=== PATIENT | male | born 1945 | race Caucasian/White ===

== ENCOUNTER 2017-05-06 13:43 | Inpatient (IN) | payer OTHER, MEDICAID ==
--- NOTE | 2017-05-06 13:48 | EDPHY ---
HPI/HX/ROS/PE/MDM Narrative: CHIEF COMPLAINT: Shortness of breath HISTORY OF PRESENT ILLNESS: This patient is a 71 y/o male Arriving via EMS from [facility] for evaluation of shortness of breath worsening since Friday, three days ago. Friday, he developed symptoms including frequent emesis possibly related to norovirus, which was prevalent at [facility] this weekend. Friday, he developed shortness of breath. Workup completed at [facility] included chest x-ray, laboratory studies, and a flu swab. Flu test negative. He has received two doses of Rocephin, but has continued to get steadily worse. Today, the facility summoned EMS. EMS reports the patient had an SpO2 of 78% with 5L oxygen by nasal cannula on their arrival. Patient was tachypneic at 44-48 breaths per minute. With a nonrebreather at 15L and DuoNeb treatment, the patient improved to 92% SpO2. He remained tachypneic and tachycardic in transport. The patient is somnolent and visibly tachypneic, and is able to give one word responses to my questioning. HPI primarily obtained from facility report by phone and EMS report at bedside. REVIEW OF SYSTEMS: ROS difficult to obtain due to patient presentation. PAST MEDICAL HISTORY: Medical: SD, Hypertension, Emphysema, Diabetes mellitus, peripheral neuropathy, Drug/alcohol addiction, Psychosis, Depression, Anxiety, Post-traumatic seizures , CVA, GERD, BPH, History of arias to R foot Surgical: Appendectomy, tonsillectomy, CABG w/stent, orthopedic, toes amputated on R foot SOCIAL HISTORY: Lives at [facility]. Single. Retired. VITAL SIGNS: Reviewed by me GENERAL: Somnolent, visibly tachypneic with accessory muscle use. Able to respond to questions with one word answers. HEENT: Atraumatic. Eyes: No icterus, no injection. Mouth: Dry mucous membranes. No erythema or lesions. Neck: supple with no adenopathy. LUNGS: Wet-sounding rhonchi and rales across anterior chest. Posterior unable to assess. CARDIAC: Tachycardic rate, regular rhythm, no rubs, murmurs or gallops. ABDOMEN: Left upper quadrant discomfort. Soft, nondistended, bowel sounds normal. BACK: No CVA tenderness. EXTREMITIES: No trauma. No edema. Range of motion is normal throughout. NEURO: Alert and oriented, grossly nonfocal. SKIN: Warm and dry, no rash. PSYCHIATRIC: Somnolent, no agitation. Portions of this note were transcribed by a medical equipment repair technician. I personally performed a history, physical exam, medical decision making, and confirmed accuracy of information the transcribed note. ED Course: 71 y/o male presets with shortness of breath, visibly tachypneic with accessory muscle use. He requires 15LPM with nonrebreather and DuoNeb treatment to maintain adequate oxygen saturation. Exam reveals wet-sounding rhonchi and rales across anterior chest. Plan for chest x-ray, respiratory therapy consult. Patient's [place] MOST reviewed. Limited intervention permitted, no intubation. IVF, antibiotics okay. Plan for labs including CBC, chemistries, Troponin, sepsis protocol. I spoke with staff at the patient's living facility prior to his arrival. 13:42 Met EMS at bedside. 13:46 Respiratory therapy at bedside. Patient placed on BiPAP. Saturations now in the low-mid 90 range. 13:48 Chest x-ray at bedside. 13:50 Reviewed portable x-ray. X-ray shows bilateral pneumonia, right greater than left. Antibiotics (zosyn) administered for healthcare associated pneumonia and possible aspiration. Troponin elevated. 14:31 Consulted with hospitalist service. Dr. Valdez accepts admission to ICU for pneumonia, sepsis, elevated troponin, respiratory failure. Severe Sepsis/Septic Shock Care NoteThe patient presents to the ED with pneumonia identified as an acute infection. The patient did have evidence of end -organ dysfunction and met criteria for severe sepsis. This condition was identified by myself at 1422. The patients vital signs are 141/89, 104, 42, 96 % BiPap, 37.4 axillary. The patient has a venous lactic acid performed within 3 hours of the identification of severe sepsis which was found to be 2.0 The patient has blood cultures drawn and received zosyn IV, per the severe sepsis treatment protocol. Critical care time spent by me, Dr. Ball, exclusively with this patient was 40 minutes, exclusive of PA time and exclusive of procedures. The organ system at risk was respiratory and I gave IVF, antibiotic, administered DuoNeb, initiated sepsis protocols, consulted with respiratory therapy, and admitted the patient to ICU to prevent worsening of the patients condition. MDM: Differential diagnosis for the patient's shortness of breath was considered including but not limited to pulmonary infectious processes, COPD exacerbation, pulmonary emboli, pulmonary edema, congestive heart failure, and cardiac causes. - Data Points Imaging Results: Imaging Impressions Chest X-Ray 05/06/17 13:54 Impression: Bilateral pneumonia, right greater than left. Imaging: I viewed and interpreted images myself Laboratory Results: Laboratory Results 05/06/17 13:40 05/06/17 05/06/17 05/06/17 14:09 13:40 13:40 PT 14.1 SEC SEC (12.0-15.0) INR 1.07 (0.83-1.16) APTT 32.5 SEC SEC (23.0-38.0) VBG Lactic Acid 2.0 mmol/L mmol/L (0.7-2.1) Sodium 138 mEq/L mEq/L (134-144) Potassium 3.4 mEq/L L mEq/L (3.5-5.2) Chloride 100 mEq/L mEq/L (97-110) Carbon Dioxide 25 mEq/l mEq/l (22-31) Anion Gap 13 mEq/L mEq/L (8-16) BUN 31 mg/dL H mg/dL (7-23) Creatinine 1.0 mg/dL mg/dL (0.7-1.3) Estimated GFR > 60 Glucose 172 mg/dL H mg/dL (70-100) Calcium 8.4 mg/dL L mg/dL (8.5-10.4) Total Bilirubin 0.7 mg/dL mg/dL (0.1-1.4) Troponin I 0.038 ng/mL H ng/mL (0.000-0.034) NT-Pro-B Natriuret Pep 458 pg/mL H pg/mL (0-125) Medications Given: Albuterol/Ipratropium (Duoneb) 3 ml IH Q4HRS PRN PRN Reason: Short of Breath/Dyspnea Stop: 11/02/17 15:13 Last Admin: 05/06/17 18:18 Dose: 3 ml Azithromycin 500 mg/ Dextrose 255 mls @ 255 mls/hr IV DAILY OTILIA PRN Reason: Protocol Stop: 06/05/17 15:29 Last Admin: 05/06/17 17:52 Dose: 255 mls Piperacillin/Tazobactam/Dextrose (Zosyn 3.375 Gm (Premix)) 50 mls @ 100 mls/hr IV Q8HRS OTILIA PRN Reason: Protocol Stop: 06/05/17 21:59 Last Admin: 05/06/17 21:58 Dose: 50 mls Discontinued Medications Acetaminophen (Tylenol Rectal) 650 mg AK EDNOW ONE Stop: 05/06/17 15:02 Last Admin: 05/06/17 15:14 Dose: Not Given Acetaminophen (Tylenol) 1,000 mg PO EDNOW ONE Stop: 05/06/17 15:14 Last Admin: 05/06/17 15:16 Dose: 1,000 mg Albuterol (Proventil Neb) 3 ml IH EDNOW ONE Stop: 05/06/17 13:51 Last Admin: 05/06/17 14:14 Dose: 3 ml Albuterol/Ipratropium (Duoneb) 3 ml IH EDNOW ONE Stop: 05/06/17 13:51 Last Admin: 05/06/17 14:14 Dose: 3 ml Piperacillin/Tazobactam/Dextrose (Zosyn (Premix)) 100 mls @ 200 mls/hr IV EDNOW ONE PRN Reason: Protocol Stop: 05/06/17 14:19 Last Admin: 05/06/17 14:42 Dose: 100 mls Sodium Chloride (Ns) 2,600 mls @ 433.3333 mls/hr 30 ml/kg infuse over 6 hr ( 2600 ml) IV EDNOW ONE PRN Reason: Protocol Stop: 05/06/17 20:21 Last Admin: 05/06/17 14:43 Dose: 2,600 mls Potassium Chloride (Klor-Con) 40 meq PO ONCE ONE PRN Reason: Protocol Stop: 05/06/17 21:16 Last Admin: 05/06/17 22:10 Dose: 40 meq General Initial Vital Signs: Initial Vital Signs Temperature (C) 37.4 C 05/06/17 13:43 Heart Rate 103 H 05/06/17 13:43 Respiratory Rate 41 H 05/06/17 13:43 Blood Pressure 142/90 H 05/06/17 13:43 O2 Sat (%) 89 L 05/06/17 13:43 O2 Delivery Mode Bi-Pap Allergies/Adverse Reactions: codeine [Codeine] Allergy (Mild, Verified 01/13/14 02:06) finasteride [From Proscar] Allergy (Verified 05/06/17 13:49) Home Medications: Medication Instructions Recorded Acetaminophen [Tylenol] 650 mg PO Q6HRS PRN 07/06/13 Bisacodyl [Dulcolax Rectal (OTC)] 10 mg AK DAILY PRN 07/06/13 Calcium Carbonate [Tums 500MG (*)] 1,000 mg PO Q2 PRN 07/06/13 MAG HYDROX/AL HYDROX/SIMETH 2 tbs PO Q8HRS PRN 07/06/13 [Mylanta Liquid] Magnesium Hydroxide [Milk of 30 ml PO DAILY PRN 07/06/13 Magnesia (*)] Multivitamins [Multivitamin (*)] 1 each PO DAILY 07/06/13 Polyethylene Glycol 3350 [Miralax 17 gm PO DAILY PRN 07/06/13 17 gm (*)] Tamsulosin HCl [Flomax 0.4 MG (*)] 0.4 mg PO HS 07/06/13 Polyvinyl Alcohol [Artificial 1 drop EACHEYE DAILY PRN #0 01/13/14 Tears] Hydrocortisone 1% [Hydrocortisone 1 luz maria TP TID PRN 05/06/17 1% cream (*)] Ipratropium/Albuterol [Duoneb (*)] 3 ml IH Q4HRS PRN 05/06/17 LORazepam [Ativan (*)] 0.5 mg PO Q4HRS PRN 05/06/17 Loperamide HCl [Imodium 2 mg (*)] 2 mg PO Q3HRS PRN 05/06/17 Mineral Oil/Petrolatum,White 1 luz maria TP BID 05/06/17 [Eucerin Cream (*)] Ondansetron HCl [Zofran] 4 mg PO Q8HRS PRN 05/06/17 Venlafaxine Xr [Effexor Xr 75MG 225 mg PO DAILY 05/06/17 (*)] Departure - Departure Disposition: [facility] Clinical Impression: Elevated troponin Pneumonia Qualifiers: Pneumonia type: due to unspecified organism Laterality: bilateral Lung location : lower lobe of lung Qualified Code(s): J18.9 - Pneumonia, unspecified organism Respiratory failure Qualifiers: Chronicity: acute Respiratory failure complication: hypoxia Qualified Code(s): J96.01 - Acute respiratory failure with hypoxia Sepsis Qualifiers: Sepsis type: sepsis due to unspecified organism Qualified Code(s): A41.9 - Sepsis, unspecified organism Condition: Serious Report Scribed for: Tatiana Ball Report Scribed by: Sol Grullon Date of Report: 05/06/17 Time of Report: 15:02
[2017-05-06] MEDS ORDERED: PIPERACILLIN/TAZO 4.5 GM/DEX 100 ML IV ONE (13:50)
[2017-05-06] MEDS ORDERED: ALBUTEROL 3 ML DEYVIAL IH ONE (13:50)
[2017-05-06] MEDS ORDERED: IPRATROPIUM/ALBUTEROL 3 ML DEYVIAL IH ONE (13:50)
--- NOTE | 2017-05-06 13:59 | CPEKG ---
Heart Rate: 100 RR Interval: 600 P-R Interval: 176 QRSD Interval: 78 QT Interval: 320 QTC Interval: 413 P [place]: 42 QRS [place]: -29 T Wave [place]: 42 EKG Severity - BORDERLINE ECG - EKG Impression: SINUS TACHYCARDIA EKG Impression: ATRIAL PREMATURE COMPLEX EKG Impression: BORDERLINE LEFT AXIS DEVIATION Electronically Signed By: Wallace Beltran 08-May-2017 05:32:52
[2017-05-06 14:05] LABS: INR 1.07 (0.83-1.16); PROTIME(PATIENT) 14.1 SEC (12.0-15.0)
[2017-05-06 14:06] LABS: APTT 32.5 SEC (23.0-38.0)
[2017-05-06 14:11] LABS: ANION GAP 13 mEq/L (8-16); BILIRUBIN,TOTAL 0.7 mg/dL (0.1-1.4); CALCIUM 8.4 mg/dL (8.5-10.4); CARBON DIOXIDE 25 mEq/l (22-31); CHLORIDE 100 mEq/L (97-110); GLOMERULAR FILTRATION RATE > 60; GLUCOSE 172 mg/dL (70-100); POTASSIUM 3.4 mEq/L (3.5-5.2); SODIUM 138 mEq/L (134-144)
[2017-05-06] MEDS ORDERED: NS 2,600 ML IV ONE (14:22)
[2017-05-06 14:24] LABS: TROPONIN I 0.038 ng/mL (0.000-0.034)
[2017-05-06 14:41] LABS: % IMMATURE GRANULYOCYTES 0.5 % (0.0-1.1); ABSOLUTE IMMATURE GRANULOCYTES 0.05 10^3/uL (0.00-0.10); ADD DIFF? NO; ADD MORPH? NO; ADD SCAN? YES; ATYPICAL LYMPHOCYTE FLAG 20 (0-99); FRAGMENT RBC FLAG 0 (0-99); HEMATOCRIT 32.6 % (40.0-51.0); LIPEMIA HEMOLYSIS FLAG 80 (0-99); MEAN CELL HEMOGLOBIN 26.3 pg (27.9-34.1); MEAN CELL HEMOGLOBIN CONCENTR. 33.7 g/dL (32.4-36.7); MEAN PLATELET VOLUME 10.6 fL (8.7-11.7); PLATELET CLUMPS FLAG 10 (0-99); PLATELET COUNT 174 10^3/uL (150-400); RED BLOOD CELL COUNT 4.18 10^6/uL (4.40-6.38); RED CELL DISTRIBUTION WIDTH 14.1 % (11.5-15.2)
[2017-05-06 14:42] LABS: LEFT SHIFT FLG 150 (0-99)
[2017-05-06 15:01] LABS: SCAN POSITIVE
[2017-05-06] MEDS ORDERED: ACETAMINOPHEN 650 MG SUPP PR ONE (15:01)
[2017-05-06] MEDS ORDERED: ONDANSETRON 4 MG/2 ML VIAL IVP PRN (15:10)
[2017-05-06] MEDS ORDERED: ONDANSETRON DISINTEGRATING 4 MG TAB PO PRN (15:10)
[2017-05-06] MEDS ORDERED: ACETAMINOPHEN 500 MG TAB ONE (15:11)
[2017-05-06] MEDS ORDERED: ACETAMINOPHEN 500 MG TAB PO ONE (15:13)
[2017-05-06] MEDS ORDERED: BISACODYL 10 MG SUPP PR PRN (15:14)
[2017-05-06] MEDS ORDERED: NON-FORMULARY NEW DRUG (Polyvinyl Alcohol [Artificial Tears] 1 DROP) EACHEYE PRN (15:14)
[2017-05-06 15:23] LABS: MICROCYTES 1+; PLATELET ESTIMATE ADEQUATE (ADEQ)
[2017-05-06 15:24] LABS: TOXIC GRANULATION PRESENT
[2017-05-06] MEDS ORDERED: PROTOCOL POTASSIUM 1 DOSE MISC PRN ×2 (15:24→21:14)
[2017-05-06 15:25] LABS: BASE EXCESS -1.6 mEq/L (-2.5-2.5); BICARBONATE 21 mEq/L (22-26); MEASURED OXYGEN SATURATION 90 % (92-95); PCO2 30 mmHg (34-38); PO2 55 mmHg (65-75); TCO2 22 mEq/L (23-27)
--- NOTE | 2017-05-06 16:11 | GHP ---
[f rep st] HISTORY AND PHYSICAL DATE OF ADMISSION: 05/06/2017 HISTORY OF PRESENT ILLNESS: The patient is a pleasant, 71-year-old gentleman with history of hyperte nsion and diabetes who lives at [facility] and presents with a couple days of increasing work of b reathing. It sounds like there is norovirus outbreak going around there and he had nausea and vomiti ng with diarrhea over the weekend. He has been progressively short of breath. He received ceftriaxo ne x2 days; that is, the prior days. He was influenza negative on the . He presents here and on presentation he was, it sounds like, poorly responsive and low oxygen saturat ion on a nonrebreather with tachypnea. When I see the patient, per report, far more alert than when he arrived. He is wearing bilevel with increased work of breathing and a rapid respiratory rate. He is able to state that his breathing is probably better than he since arrived. He acknowledges nause a, vomiting, and diarrhea in the antecedent days. He does not recall having C diff, which the medical records suggest he did a number of years ago. He denies chest pain. He does not have swelling in his legs. It sounds like he has been living at [facility] for a while. He has a history of admissions here in the past for encephalopathy. SOCIAL HISTORY: He is a lifelong nonsmoker, although he smoked crack cocaine for a couple of years. CODE STATUS: Patient reconfirms a [id number] status and [id number] status. ER COURSE: Notable for IV fluids, Zosyn, bilevel. REVIEW OF SYSTEMS: Complete 10-point review of systems conducted. Negative except as noted in HPI. PAST MEDICAL HISTORY: 1. 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 2. History of diabetes, although he is not on any medications. 3. Hypertension. Not on medications. 4. Chronic kidney disease. Looks like in our system his creatinine is 1 today. Baseline is normal. Lower than that. So, I would cancel chronic kidney disease. 5. Anxiety disorder. 6. Reflux. 7. BPH. On medication. 8. Type 2 diabetes. 9. 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 10. Chronic ischemic heart disease. Not clear that he has had stents in the past. Not on aspirin o r statin. ALLERGIES: Codeine, finasteride. MEDICATIONS: Ondansetron, venlafaxine, MiraLAX, multivitamin, Milk of Magnesia, lorazepam, loperamid e, hydrocortisone, tamsulosin, ipratropium, calcium carbonate, Artificial Tears, bisacodyl, and Tylen ol. SOCIAL HISTORY: Previous crack cocaine. Lives in [facility]. Does not drink alcohol or smoke ci garettes. FAMILY HISTORY: Parents . PHYSICAL EXAMINATION: VITAL SIGNS: Temp 37.4, blood pressure 142/90, pulse 103, breathing 41 times a minute, 89% on CPAP. These are presenting vitals. GENERAL: He is in obvious respiratory distress . His sclerae are anicteric. Oropharynx clear. Mucous membranes are dry. NECK: Supple without ly mphadenopathy or JVD. LUNGS: Increased work of breathing with accessary muscle use. He has crackle s. Right greater than left. There is good air movement. There is minimal wheeze. HEART: S1, S2 w ithout murmurs. Tachycardic. ABDOMEN: Paradoxic motion but is otherwise unremarkable. LOWER EXTRE MITIES: Without edema. On the right, there is a transmetatarsal amputation on 06-29 without evidence of cellulitis. NEUROLOGIC: Nonfocal. The patient is alert and able to answer questions. SKIN: Ot herwise without rash. There is a skin graft site on the right side that is well healed. LABORATORY: Sodium 138, potassium 3.4, chloride 100, bicarb 25, BUN 31, creatinine 1.0. These are g reater than his baseline. Glucose 172. Calcium 8.4. Troponin 0.038. He has no history of elevated troponins, although there were indeterminate troponins here in the past. BNP is 458. White count 9 .6. Hematocrit is 33. Platelets are 174,000. MCV is low at 78. INR is 1. Venous lactate is 2. DIAGNOSTIC DATA: Chest x-ray, interpreted by me, shows bilateral pulmonary infiltrates. Although th e right is fairly significant, the left is also present. There is no pleural effusion. There is no pneumothorax. EKG interpreted by me. This shows sinus at 100. There is a borderline left axis deviation. There a re 0.[address] depressions or 1 mm in V3, V4, and V5. I discussed the case with Tatiana Ball. ASSESSMENT/PLAN: 71-year-old gentleman presents with sepsis and acute hypoxemic respiratory failure. 1. Sepsis. The source is his lungs. He is receiving intravenous fluids. We will follow his lactat e. 2. Pneumonia. The patient has nosocomial pneumonia. Zosyn and azithromycin. This may be aspiratio n. We can have a speech consult in the coming days. I have not ordered it now. 3. Acute hypoxemic respiratory failure. This is secondary to significant airspace disease seen on x -ray. I anticipate that this will get worse with volume resuscitation. 4. Increased work of breathing. We will check an ABG now. 5. Diabetes. The patient is not on any medications. We will follow. 6. Hypokalemia. We will put him on the electrolyte protocol. 7. Code status. The patient confirms [id number]. Still, we will have to manage his current status without intubation. I suspect we will be able to, although sometimes in this setting, a shamika ent's respiratory status worsens with hydration. 8. Prophylaxis. Pharmacologic prophylaxis indicated. We will start low-molecular weight heparin. 9. Anxiety and depression. I will continue his venlafaxine. 10. Indeterminate troponin. We will follow. PLAN OF CARE: The patient has a number of medical comorbidities for which he is currently not on med ications. I suspect there may be more of a palliative care setting for him, so we will go ahead and get more information when the patient is clinically more stable. 48 minutes of critical care time spent on this patient. /[id number]/MODL
[2017-05-06] MEDS ORDERED: TEARS/DEXTRAN 70/HYPROMELLOSE 15 ML OPHT.BTL EACHEYE PRN (17:22)
[2017-05-06] MEDS: AZITHROMYCIN IV 500 MG in D5W 250 ML IV SCH (17:52)
[2017-05-06] MEDS: IPRATROPIUM/ALBUTEROL 3 ML DEYVIAL IH PRN (18:18)
[2017-05-06 18:54] LABS: POTASSIUM 3.2 mEq/L (3.5-5.2)
[2017-05-06] MEDS ORDERED: POTASSIUM CL 20 MEQ TAB PO ONE (21:15)
[2017-05-06] MEDS: PIPERACILLIN/TAZO 3.375 GM/DEX 50 ML IV SCH (21:58)
[2017-05-06] MEDS: GUAIFENESIN/DM 10 ML UDCUP PO PRN (22:52)
[2017-05-07] MEDS: ACETAMINOPHEN 325 MG TAB PO PRN (00:10)
[2017-05-07 00:38] LABS: COLOR YELLOW; LEUKOCYTE ESTERASE,URINE NEGATIVE (NEGATIVE); NITRITE,URINE NEGATIVE (NEGATIVE)
[2017-05-07 00:47] LABS: AMORPHOUS PRESENT /hpf (NONE-1+); BACTERIA TRACE /hpf (NONE SEEN); MUCUS TRACE /lpf (NONE-1+)
[2017-05-07 04:41] LABS: % IMMATURE GRANULYOCYTES 0.5 % (0.0-1.1); ABSOLUTE IMMATURE GRANULOCYTES 0.04 10^3/uL (0.00-0.10); ADD DIFF? NO; ADD MORPH? NO; ADD SCAN? NO; ATYPICAL LYMPHOCYTE FLAG 0 (0-99); FRAGMENT RBC FLAG 0 (0-99); HEMATOCRIT 30.7 % (40.0-51.0); LEFT SHIFT FLG 70 (0-99); LIPEMIA HEMOLYSIS FLAG 80 (0-99); MEAN CELL HEMOGLOBIN 26.2 pg (27.9-34.1); MEAN CELL HEMOGLOBIN CONCENTR. 32.6 g/dL (32.4-36.7); MEAN CELL VOLUME 80.4 fL (81.5-99.8); MEAN PLATELET VOLUME 10.9 fL (8.7-11.7); PLATELET CLUMPS FLAG 10 (0-99); PLATELET COUNT 166 10^3/uL (150-400); RED BLOOD CELL COUNT 3.82 10^6/uL (4.40-6.38); RED CELL DISTRIBUTION WIDTH 14.2 % (11.5-15.2)
[2017-05-07] MEDS: CALCIUM CARBONATE 500 MG CHEWABLE TAB PO PRN ×2 (04:43→08:53)
[2017-05-07] MEDS: IPRATROPIUM/ALBUTEROL 3 ML DEYVIAL IH PRN (04:51)
[2017-05-07 04:54] LABS: ANION GAP 9 mEq/L (8-16); CALCIUM 7.3 mg/dL (8.5-10.4); CARBON DIOXIDE 25 mEq/l (22-31); CHLORIDE 106 mEq/L (97-110); CREATININE 0.8 mg/dL (0.7-1.3); GLOMERULAR FILTRATION RATE > 60; GLUCOSE 111 mg/dL (70-100); POTASSIUM 3.2 mEq/L (3.5-5.2); SODIUM 140 mEq/L (134-144)
[2017-05-07] MEDS ORDERED: POTASSIUM CL 20 MEQ TAB PO ONE (05:19)
[2017-05-07] MEDS: GUAIFENESIN/DM 10 ML UDCUP PO PRN ×2 (05:24→18:29)
[2017-05-07] MEDS: PIPERACILLIN/TAZO 3.375 GM/DEX 50 ML IV SCH (05:24)
[2017-05-07] MEDS: VENLAFAXINE XR 75 MG CAP PO SCH (08:08)
[2017-05-07] MEDS: ENOXAPARIN 40 MG/0.4 ML SYR SC SCH (08:08)
[2017-05-07] MEDS: AZITHROMYCIN IV 500 MG in D5W 250 ML IV SCH (08:20)
--- NOTE | 2017-05-07 08:37 | CPEKG ---
Heart Rate: 89 RR Interval: 674 P-R Interval: 176 QRSD Interval: 88 QT Interval: 356 QTC Interval: 434 P [place]: 57 QRS [place]: -22 T Wave [place]: 40 EKG Severity - ABNORMAL ECG - EKG Impression: SINUS RHYTHM EKG Impression: ATRIAL PREMATURE COMPLEX EKG Impression: BORDERLINE LEFT AXIS DEVIATION EKG Impression: PROBABLE POSTERIOR INFARCT Electronically Signed By: Yolanda Araujo 07-May-2017 11:13:20
--- NOTE | 2017-05-07 10:39 | PDMN ---
Medical Necessity Medical necessity: Pt meets IP criteria per MD; est los >2 mn for eval/tx of sepsis, pneumonia, acute hypoxemic respiratory failure & hypokalemia; admit to ICU for further workup/monitoring, IV abx, ABGs, cxs & electrolyte protocol; hx CDIFF, encephalopathy, diabetes, HTN, CKD, chronic ischemic heart disease; per H &P & order 05/06/17
[2017-05-07] MEDS ORDERED: POLYETHYLENE GLYCOL 3350 17 GM PKT PO PRN (10:44)
[2017-05-07] MEDS ORDERED: MAGNESIUM HYDROXIDE 30 ML UDCUP PO PRN (10:44)
[2017-05-07] MEDS: IPRATROPIUM/ALBUTEROL 3 ML DEYVIAL IH SCH ×4 (11:52→23:12)
--- NOTE | 2017-05-07 12:55 | ASMTCASEMG ---
Living Arrangements What is your living Answers: WIth Caregiver arrangement? Who do you live with? Type Of Residence What kind of residence do Answers: Alf Facility you live in? Type of Residence Facility Name Notes: [facility] Discharge Plan Comments Coordination Status Comments Notes: Patient is a 71yo gentleman with a hx of hypertension and diabetes who was admitted for sepsis, pneumonia, and acute hypoxic respiratory failure. Patient is a resident of [facility] and currently they have norovirus at the facility. PT/OT have been ordered. Patient will most likely return to [facility] after his medical treatment is complete. Awaiting OT/PT recommendations. CM will follow. Date Signed: 05/07/2017 12:54 PM Electronically Signed By:Tammy Kamara LCSW
[2017-05-07] MEDS ORDERED: IPRATROPIUM/ALBUTEROL 3 ML DEYVIAL IH ONE (16:30)
[2017-05-07] MEDS ORDERED: ALBUTEROL 200 PUFFS/18 GM MDI IH PRN (16:44)
--- NOTE | 2017-05-07 16:49 | HOSPPROG ---
Hospitalist Progress Note Assessment/Plan: # Sepsis 2/2 pulmonary source - pt presented with tachycrdia, fever and elevated lactate - he received aggressive fluid resuscitation and empiric antibiotics - BCx NGTD - hemodynamics have markedly improved - cont antibiotics and supportive care # CAP - CXR (personally reviwed and interpreted) with bilateral infiltrates - oxygen saturations requiring BiPap to 90% on 4L today - transition to PO levofloxacin - cont inhaled beta agonists - cont pulmonary toilet # AHRF - 2/2 above - contine aggressive pulmonary suppport - patient has improved very quickly since admission # Acute leukocytosis - WBC 9 ->8 this am continue to monitor cultures # Anxiety/depression - continue home effexor # proph - lovenox #diet - regular # dispo - > 2MN as presenting septic needing additional stabilization before returning home I have discussed the case with Dr. Herring - patient is stable for transfer to medical floor Subjective: feeling better today Objective: Vital Signs Temp Pulse Resp BP Pulse Ox 36.8 C 88 19 133/77 H 88 L 05/07/17 15:08 05/07/17 16:13 05/07/17 15:08 05/07/17 15:08 05/07/17 16:13 Microbiology 05/06/17 14:46 Respiratory Panel (PCR) - Final Nasal, Sinus - Swab Human Rhinovirus/Enterovirus Laboratory Results 05/07/17 04:25 05/07/17 04:25 05/06/17 05/07/17 05/08/17 05:59 05:59 05:59 Intake Total 1702 750 Output Total 250 75 Balance 1452 675 PT 14.1 SEC (12.0-15.0) 05/06/17 13:40 INR 1.07 (0.83-1.16) 05/06/17 13:40 - Physical Exam Constitutional: appears nourished Respiratory: expiratory wheeze, rhonchi Gastrointestinal: normoactive bowel sounds Genitourinary: no bladder fullness Skin: warm Musculoskeletal: No asymmetric calves Neurologic: AAOx3 Psychiatric: interacting appropriately Lymph, Heme, Immunologic: no cervical LAD ICD10 Worksheet Patient Problems: Problems Problem Status Onset Elevated troponin Acute Pneumonia Acute Respiratory failure Acute Sepsis Acute Clostridium difficile infection Acute Benign hypertension Chronic Bipolar disorder Chronic CAD - Coronary arteriosclerosis Chronic Diabetes mellitus Chronic Seizure disorder Chronic
[2017-05-07] MEDS: LORazepam 0.5 MG TAB PO PRN (18:29)
[2017-05-07 19:07] LABS: POTASSIUM 3.3 mEq/L (3.5-5.2)
[2017-05-07] MEDS ORDERED: LORazepam 0.5 MG TAB PO ONE (20:38)
[2017-05-07] MEDS: TAMSULOSIN HCL 0.4 MG CAP PO SCH (20:55)
[2017-05-07] MEDS ORDERED: POTASSIUM CL 10 MEQ TAB PO ONE (20:57)
[2017-05-07] MEDS: EUCERIN/HYDROCERIN CREAM 120GM JAR TP SCH (22:29)
[2017-05-08] MEDS: IPRATROPIUM/ALBUTEROL 3 ML DEYVIAL IH SCH ×6 (03:03→23:42)
[2017-05-08] MEDS: LORazepam 0.5 MG TAB PO PRN ×4 (03:48→21:28)
[2017-05-08] MEDS ORDERED: FUROSEMIDE 20 MG/2 ML VIAL IVP ONE (04:44)
[2017-05-08 05:43] LABS: POTASSIUM 3.8 mEq/L (3.5-5.2)
[2017-05-08] MEDS: VENLAFAXINE XR 75 MG CAP PO SCH (08:35)
[2017-05-08] MEDS: ENOXAPARIN 40 MG/0.4 ML SYR SC SCH (08:35)
[2017-05-08] MEDS: MULTIVITAMINS 1 EACH TAB PO SCH (08:36)
[2017-05-08 09:21] LABS: PHENCYCLIDINE URINE BCH 9 ng/ml (NEGATIVE); PHENCYCLIDINE URINE BCH NEGATIVE (NEGATIVE); TETRAHYDROCANNABINOL URINE < 5 ng/mL (NEGATIVE); TETRAHYDROCANNABINOL URINE NEGATIVE (NEGATIVE)
--- NOTE | 2017-05-08 11:34 | ASMTCMCOM ---
CM Note CM Note Notes: Pt admitted from [facility]. Faxed them updates today. Pt requesting his glass, ipda and Astronomy book from . However, due to their norovirus outbreak, it is unlikey anyone can do that for him today per Viola. C/M will continue to follow. Date Signed: 05/08/2017 11:34 AM Electronically Signed By:Shawnee Gil LCSW
--- NOTE | 2017-05-08 13:40 | HOSPPROG ---
Hospitalist Progress Note Assessment/Plan: # Sepsis 2/2 pulmonary source - pt presented with tachycardia, fever and elevated lactate - he received aggressive fluid resuscitation and empiric antibiotics - BCx NGTD - hemodynamics have markedly improved - cont antibiotics and supportive care # CAP - CXR (personally reviewed and interpreted) with bilateral Right> left infiltrates - oxygen saturations 92% on 6L today - cont PO levofloxacin - cont inhaled beta agonists - cont pulmonary toilet # AHRF - 2/2 above - continue aggressive pulmonary support - seems stable since transfer to floor # Acute leukocytosis - WBC 9 -> 8 - continue to monitor cultures # Anxiety/depression - continue home Effexor # proph - lovenox #diet - regular # dispo - > 2MN as presenting septic needing additional stabilization before returning home I have discussed the case with Dr. Herring - infiltrates may be combination of viral pathogens and overlying bacterial PNA Subjective: breathing still feels labored Objective: Vital Signs Temp Pulse Resp BP Pulse Ox 37.0 C 93 26 H 143/80 H 95 05/08/17 12:00 05/08/17 12:00 05/08/17 12:00 05/08/17 12:00 05/08/17 12:00 Laboratory Results 05/07/17 04:25 05/08/17 05:20 05/07/17 05/08/17 05/09/17 05:59 05:59 05:59 Intake Total 1702 1290 Output Total 250 250 100 Balance 1452 1040 -100 PT 14.1 SEC (12.0-15.0) 05/06/17 13:40 INR 1.07 (0.83-1.16) 05/06/17 13:40 - Physical Exam Constitutional: chronically ill appearing, obese Eyes: anicteric sclera Ears, Nose, Mouth, Throat: moist mucous membranes Cardiovascular: regular rate and rhythym Respiratory: expiratory wheeze, inspiratory crackles Gastrointestinal: normoactive bowel sounds Genitourinary: no bladder fullness Skin: warm Musculoskeletal: No asymmetric calves Neurologic: AAOx3 Psychiatric: No agitated Lymph, Heme, Immunologic: no cervical LAD ICD10 Worksheet Patient Problems: Problems Problem Status Onset Elevated troponin Acute Pneumonia Acute Respiratory failure Acute Sepsis Acute Clostridium difficile infection Acute Benign hypertension Chronic Bipolar disorder Chronic CAD - Coronary arteriosclerosis Chronic Diabetes mellitus Chronic Seizure disorder Chronic
[2017-05-08] MEDS: EUCERIN/HYDROCERIN CREAM 120GM JAR TP SCH ×2 (15:10→20:16)
[2017-05-08 18:58] LABS: POTASSIUM 3.4 mEq/L (3.5-5.2)
[2017-05-08] MEDS: TAMSULOSIN HCL 0.4 MG CAP PO SCH (20:15)
[2017-05-08] MEDS: LORazepam 2 MG/ML INJ IVP PRN (20:15)
[2017-05-08] MEDS ORDERED: POTASSIUM CL 10 MEQ TAB PO ONE (20:18)
[2017-05-09] MEDS: GUAIFENESIN/DM 10 ML UDCUP PO PRN (01:42)
[2017-05-09] MEDS: LORazepam 2 MG/ML INJ IVP PRN ×2 (01:42→17:10)
[2017-05-09] MEDS: IPRATROPIUM/ALBUTEROL 3 ML DEYVIAL IH SCH ×6 (04:39→23:14)
[2017-05-09 05:28] LABS: HEMATOCRIT 32.3 % (40.0-51.0); HEMOGLOBIN 10.5 g/dL (13.7-17.5); MEAN CELL HEMOGLOBIN 25.5 pg (27.9-34.1); MEAN CELL HEMOGLOBIN CONCENTR. 32.5 g/dL (32.4-36.7); MEAN CELL VOLUME 78.4 fL (81.5-99.8); RED BLOOD CELL COUNT 4.12 10^6/uL (4.40-6.38); RED CELL DISTRIBUTION WIDTH 14.4 % (11.5-15.2)
[2017-05-09 05:40] LABS: POTASSIUM 3.5 mEq/L (3.5-5.2)
[2017-05-09] MEDS: ENOXAPARIN 40 MG/0.4 ML SYR SC SCH (09:45)
[2017-05-09] MEDS: MULTIVITAMINS 1 EACH TAB PO SCH (09:56)
[2017-05-09] MEDS: VENLAFAXINE XR 75 MG CAP PO SCH (09:56)
[2017-05-09] MEDS ORDERED: FUROSEMIDE 40 MG/4 ML VIAL IVP ONE ×2 (11:11→18:26)
[2017-05-09] MEDS ORDERED: IOPAMIDOL (ISOVUE 370) 100 ML BTL IV ONE (12:09)
[2017-05-09] MEDS: EUCERIN/HYDROCERIN CREAM 120GM JAR TP SCH ×2 (12:17→20:30)
[2017-05-09] MEDS: methylPREDNISolone SOD SUCC 125 MG/2 ML VIAL IVP SCH ×3 (12:44→20:27)
[2017-05-09 14:24] LABS: BASE EXCESS 0.7 mEq/L (-2.5-2.5); BICARBONATE 24 mEq/L (22-26); MEASURED OXYGEN SATURATION 94 % (92-95); PCO2 35 mmHg (34-38); PO2 70 mmHg (65-75); TCO2 25 mEq/L (23-27)
[2017-05-09] MEDS ORDERED: VANCOMYCIN HCL/NORMAL SALINE 250 ML IV SCH (18:30)
[2017-05-09] MEDS: PIPERACILLIN/TAZO 3.375 GM/DEX 50 ML IV SCH ×2 (18:33→23:30)
[2017-05-09 18:53] LABS: % IMMATURE GRANULYOCYTES 2.4 % (0.0-1.1); ABSOLUTE IMMATURE GRANULOCYTES 0.25 10^3/uL (0.00-0.10); ADD DIFF? NO; ADD MORPH? NO; ADD SCAN? NO; ATYPICAL LYMPHOCYTE FLAG 90 (0-99); FRAGMENT RBC FLAG 0 (0-99); HEMATOCRIT 35.1 % (40.0-51.0); HEMOGLOBIN 11.5 g/dL (13.7-17.5); LEFT SHIFT FLG 20 (0-99); LIPEMIA HEMOLYSIS FLAG 80 (0-99); MEAN CELL HEMOGLOBIN CONCENTR. 32.8 g/dL (32.4-36.7); MEAN CELL VOLUME 79.4 fL (81.5-99.8); PLATELET CLUMPS FLAG 0 (0-99); PLATELET COUNT 260 10^3/uL (150-400); RED BLOOD CELL COUNT 4.42 10^6/uL (4.40-6.38); RED CELL DISTRIBUTION WIDTH 14.5 % (11.5-15.2)
--- NOTE | 2017-05-09 18:53 | HOSPPROG ---
Hospitalist Progress Note Assessment/Plan: Assessment: 71 yo M p/w sepsis and pneumonia c/b acute diastolic CHF exacerbation, reactive airway exacerbation and resultant respiratory failure Plan: # Acute diastolic CHF exacerbation. Worsening today, likely iatrogenic in setting of IVF w/ sepsis tx, evidenced by pulm edema/effusions on CT, escalating o2 requirements, tachypnea - reviewed outside records (Echo 08/03/13 w/ dd, EF 60-65%) - began diuresis this afternoon, will cont lasix IV 40mg bid - strict I/O, weights - get Echo - monitor lytes - resp status remains critical despite initial dose of lasix, d/w RT, place on CPAP trial, transfer to SDU # Acute reactive airway exacerbation. Worsening today, exp wheezes/bronchial breath sounds, likely 2/2 PNA precipitant - start IV steroids, cont scheduled nebs - ABG w/o CO2 retention # Sepsis. POA, Evidenced by autonomic dysregulation in setting of infxn w/ end- organ failure including myocardial ischemia - stabilized, WBC downtrending # CAP. POA, Resolving on chest CT, cont levofloxacin # Acute Hypoxic Resp Failure. POA, Evidenced by escalating o2 requirements today (6LPM 88%, RR 30, visibly labored breathing w/ use of accessory muscles), 2/2 above - transfer to SDU # Acute on chronic encephalopathy. Evidenced by global brain dysfunction characterized as poor level of interaction, responsiveness, disorientation, all of which are an acute change from his baseline, as witnessed by a staff member who worked w/ patient as recently as 2 weeks ago at [facility], 2/2 toxic effects of infxn # Anxiety/depression - continue home Effexor # proph - lovenox # diet - regular # code - DNR, but BiPAP w/in scope of care # dispo - ADD uncertain 45 minutes of critical care time spent today, assessing and reassessing patient on multiple occasions, remains high risk of worsening morbidity/mortality 2/2 issues outlined above. Subjective: patient struggling to breath, calling for "help" Objective: Vital Signs Temp Pulse Resp BP Pulse Ox 36.5 C 104 H 25 H 159/83 H 91 L 05/09/17 17:00 05/09/17 17:33 05/09/17 17:00 05/09/17 17:33 05/09/17 17:33 Laboratory Results 05/09/17 04:11 05/09/17 04:11 05/08/17 05/09/17 05/10/17 05:59 05:59 05:59 Intake Total 1290 1550 Output Total 250 100 Balance 1040 1450 PT 14.1 SEC (12.0-15.0) 05/06/17 13:40 INR 1.07 (0.83-1.16) 05/06/17 13:40 - Physical Exam Constitutional: chronically ill appearing, uncomfortable, unkempt Cardiovascular: tachycardia, edema (trace bilat LE), No systolic murmur, No irregularly irregular Respiratory: expiratory wheeze, inspiratory crackles, bronchial breath sounds, respiratory distress, other (use of accessory muscles) Gastrointestinal: normoactive bowel sounds, soft, non-tender abdomen, no palpable masses Neurologic: other (AAOx1 person only), No weakness (motor 5/5 bilat LE) Psychiatric: encephalopathic, anxious, agitated, poor insight, poor memory ICD10 Worksheet Patient Problems: Problems Problem Status Onset Benign hypertension Chronic Diabetes mellitus Chronic Seizure disorder Chronic CAD - Coronary arteriosclerosis Chronic Bipolar disorder Chronic Clostridium difficile infection Acute Pneumonia Acute Sepsis Acute Respiratory failure Acute Elevated troponin Acute
[2017-05-09 19:16] LABS: ALANINE AMINOTRANSFERASE 103 IU/L (21-72); ALBUMIN 3.1 g/dL (3.5-5.0); ALKALINE PHOSPHATASE 106 IU/L (38-126); ANION GAP 21 mEq/L (8-16); ASPARTATE AMINOTRANSFERASE 107 IU/L (17-59); BILIRUBIN,TOTAL 0.6 mg/dL (0.1-1.4); CALCIUM 8.2 mg/dL (8.5-10.4); CARBON DIOXIDE 22 mEq/l (22-31); CHLORIDE 101 mEq/L (97-110); CREATININE 0.9 mg/dL (0.7-1.3); GLOMERULAR FILTRATION RATE > 60; GLUCOSE 176 mg/dL (70-100); POTASSIUM 3.7 mEq/L (3.5-5.2); SODIUM 144 mEq/L (134-144); TOTAL PROTEIN 6.4 g/dL (6.3-8.2)
[2017-05-09] MEDS: VANCOMYCIN 1.25 GM in D5W 250 ML IV SCH (20:06)
[2017-05-09] MEDS ORDERED: DEXMEDETOMIDINE HCL 400 MCG in NS 100 ML IV SCH (20:30)
[2017-05-09] MEDS: TAMSULOSIN HCL 0.4 MG CAP PO SCH (20:30)
--- NOTE | 2017-05-09 20:42 | GCON ---
[f rep st] CONSULTATION DATE OF CONSULTATION: 05/09/2017 REASON FOR CONSULTATION: Pneumonia, acute respiratory failure. HISTORY OF PRESENT ILLNESS: The patient is a 71-year-old, resident of [facility]. He was admitted to the hospital on 05/06, secondary to increasing shortness of breath and hypoxemia. On admission he had pulmonary infiltrates on the right greater than the left. Respiratory viral panel was positive for enterovirus/rhino virus. Blood cultures are negative. A sputum culture has not been obtained. He was briefly in the intensive care unit and was then subsequently transferred to a medical bed. He is now transferred back secondary to increasing dyspnea, respiratory distress, and hypoxemia. He has no history of underlying pulmonary disease. He apparently is a never smoker. He has a number of underlying medical problems, as outlined below. He is not on oxygen in the care home and not on inhalers. 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 DRUG ALLERGIES: Codeine and finasteride. SOCIAL HISTORY: He is a resident of [facility]. Complete details regarding prior social history are unknown to me. He apparently did use crack cocaine in the past ? He is a never smoker. Alcohol is negative. FAMILY HISTORY: Noncontributory. REVIEW OF SYSTEMS: A 10-point review of systems is negative, except as mentioned above in the HPI. PHYSICAL EXAMINATION: GENERAL: Reveals a gentleman who has an oxy mask in place. He is short of breath with a respiratory rate of approximately 30. Saturations are 95%. Heart rate is 105 with sinus tachycardia on the monitor. Blood pressure is 155/100. He is afebrile and has been afebrile since admission. HEENT: Remarkable for dry mucous membranes in the oxy mask. NECK: There is no obvious jugular venous distention. PULMONARY: The chest is remarkable for tachypnea, decreased excursions, rales in the right greater than the left with some bronchial changes. Rales are fairly distant and less impressive than his radiologic studies. HEART: Tachycardic. Systolic murmur is present. There are no obvious gallops. P2 does appear to be increased. ABDOMEN: Slightly distended, soft, and nontender. Bowel sounds are present. EXTREMITIES: Are unremarkable for edema, cords or tenderness. NEUROLOGIC: Nonfocal. He moves all extremities equally. Sensation is intact. He is responsive to questions, but is having difficulty talking secondary to dry mouth. IMAGING STUDIES: CT angiogram of the chest just done is unremarkable for pulmonary embolic disease. There is an impressive alveolar infiltrate with air bronchograms throughout the right lung, in the left upper lobe, and somewhat at the left base. Small bilateral pleural effusions are also present. LABORATORY DATA: Arterial blood gas shows a pH of 7.45, pCO2 of 35, and pO2 70 on the oxy mask. White blood cell count is 10,000, hematocrit 32, platelets 219 ,000. PT and PTT were normal on admission. Basic metabolic panel 2 days ago was normal. Potassium is 3.5, today. Toxicology screen on admission was negative. ASSESSMENT: 1. Acute respiratory failure. This is associated with bilateral pulmonary infiltrates, right greater than left. This likely represents an aspiration pneumonia/pneumonitis. He may have vomited recently. Viral pneumonitis or congestive heart failure seems much less likely.. He was initially treated with Zosyn and azithromycin, but these were stopped, and he was switched to Levaquin with initial improvement. Broader coverage would appear to be needed at this time. A component of congestive heart failure cannot be excluded. However, BNP was relatively low at 458 on admission. This will be repeated. A cardiac echocardiogram will be requested. 2. History of depression and bipolar disease. 3. History of coronary artery disease, diastolic dysfunction. 4. History of MRSA infections 5. Positive viral panel for rhino/entero virus. Significance is unclear. Likely not responsible for his pulmonary infiltrates. 6. History of other medical problems as outlined above. 7. Advanced directives: Do not resuscitate PLAN AND RECOMMENDATIONS: The patient will be supported in the intensive care unit. BiPAP and ventilatory assistance will be initiated. Chemistries, troponins, BNP, and CBC will all be redone. Levaquin will be discontinued and antibiotics broadened: This will include Zosyn, azithromycin and vancomycin. Lasix will be repeated x1. Bronchopulmonary therapies will be continued. Steroids can be reduced. Further plans and recommendations will be made based on his progress over the next 12-24 hours. /[id number]/MODL and [id number]/MODL [facility]
[2017-05-09] MEDS: DEXMEDETOMIDINE IN 0.9 % NACL 100 ML IV SCH (20:52)
[2017-05-10] MEDS: DEXMEDETOMIDINE IN 0.9 % NACL 100 ML IV SCH ×2 (04:04→08:21)
[2017-05-10 04:42] LABS: ANION GAP 16 mEq/L (8-16); CALCIUM 7.8 mg/dL (8.5-10.4); CARBON DIOXIDE 25 mEq/l (22-31); CHLORIDE 102 mEq/L (97-110); CREATININE 1.1 mg/dL (0.7-1.3); GLOMERULAR FILTRATION RATE > 60; GLUCOSE 212 mg/dL (70-100); POTASSIUM 3.6 mEq/L (3.5-5.2); SODIUM 143 mEq/L (134-144)
[2017-05-10 04:44] LABS: % IMMATURE GRANULYOCYTES 1.8 % (0.0-1.1); ABSOLUTE IMMATURE GRANULOCYTES 0.12 10^3/uL (0.00-0.10); ADD DIFF? NO; ADD MORPH? NO; FRAGMENT RBC FLAG 0 (0-99); HEMATOCRIT 32.3 % (40.0-51.0); HEMOGLOBIN 10.7 g/dL (13.7-17.5); LEFT SHIFT FLG 20 (0-99); LIPEMIA HEMOLYSIS FLAG 80 (0-99); MEAN CELL HEMOGLOBIN 26.2 pg (27.9-34.1); MEAN CELL HEMOGLOBIN CONCENTR. 33.1 g/dL (32.4-36.7); MEAN CELL VOLUME 79.2 fL (81.5-99.8); MEAN PLATELET VOLUME 10.5 fL (8.7-11.7); PLATELET CLUMPS FLAG 0 (0-99); PLATELET COUNT 262 10^3/uL (150-400); RED BLOOD CELL COUNT 4.08 10^6/uL (4.40-6.38); RED CELL DISTRIBUTION WIDTH 14.5 % (11.5-15.2)
[2017-05-10] MEDS: IPRATROPIUM/ALBUTEROL 3 ML DEYVIAL IH SCH ×5 (04:45→21:07)
[2017-05-10 04:47] LABS: ADD SCAN? NO; ATYPICAL LYMPHOCYTE FLAG 10 (0-99)
[2017-05-10] MEDS: PIPERACILLIN/TAZO 3.375 GM/DEX 50 ML IV SCH ×4 (06:19→23:23)
[2017-05-10] MEDS: VANCOMYCIN 1.25 GM in D5W 250 ML IV SCH ×2 (06:21→18:44)
[2017-05-10] MEDS: methylPREDNISolone SOD SUCC 125 MG/2 ML VIAL IVP SCH ×2 (09:31→21:20)
[2017-05-10] MEDS: VENLAFAXINE XR 75 MG CAP PO SCH ×2 (09:31→09:58)
[2017-05-10] MEDS: AZITHROMYCIN IV 500 MG in D5W 250 ML IV SCH (09:31)
[2017-05-10] MEDS: ENOXAPARIN 40 MG/0.4 ML SYR SC SCH (09:31)
[2017-05-10] MEDS: MULTIVITAMINS 1 EACH TAB PO SCH ×2 (09:32→09:58)
[2017-05-10 11:30] LABS: BILIRUBIN,TOTAL 0.4 mg/dL (0.1-1.4); BILIRUBIN-CONJUGATED 0.3 mg/dL (0.0-0.5); BILIRUBIN-UNCONJUGATED 0.1 mg/dL (0.0-1.1); TOTAL PROTEIN 6.6 g/dL (6.3-8.2)
[2017-05-10] MEDS: POTASSIUM CL 20 MEQ TAB PO SCH (12:05)
[2017-05-10] MEDS: EUCERIN/HYDROCERIN CREAM 120GM JAR TP SCH ×2 (12:08→21:22)
[2017-05-10 12:27] LABS: PROCALCITONIN 2.43 ng/mL (0.02-0.10)
--- NOTE | 2017-05-10 12:55 | ECHO ---
[email or web address] [address] [address] Main: [phone] Fax: Transthoracic Echocardiogram Name: GINA HOOPER MR#: [id number] Study Date: 05/10/2017 Study Time: 11:29 AM Date of : 1945 Age: 71 year(s) Height: 182.9 cm (72 in.) Weight: 86.18 kg (190 lb.) BSA: 2.08 m2 Gender: Male Examination: Echo Indication: PNA, Sepsis, DNR, Respiratory failure, increased troponins, BiPap Image Quality: Technically Difficult Contrast: Requested by: Morgan Mohan BP: 157 mmHg/87 mmHg Heart Rate: Rhythm: Indication: PNA, Sepsis, DNR, Respiratory failure, increased troponins, BiPap Procedure Staff Conference Planner: Eugenio Bañuelos Reading Physician: Jason Cabrera Requesting Provider: Conclusions: 1)Technically limited echo. 2)Low normal LVEF of 48%. Unable to assess specific wall motions. 3)Mild concentric LVH with mild diastolic dysfunction noted. 4)Aortic valve sclerosis without or AI. 5)Mild TR with estimated normal PA pressures. Measurements: Chambers Valvular Assessment AV/MV Valvular Assessment TV/PV Normal Normal Normal Name Value Range Name Value Range Name Value Range Ao Nohelia (MM): 3.6 cm (2.2 cm-3.7 AV Vmax: 1.12 m/s (1 m/s-1.7 TR Vmax: 2.31 mm/s ( - ) cm) m/s) TR PGmax: 21 mmHg ( - ) IVSd (2D): 0.9 cm (0.6 cm-1.1 AV maxP mmHg ( - ) syst. PAP: 26 mmHg ( - ) cm) MV E Vmax: 0.48 m/s ( - ) LVDd (2D): 4.9 cm (4.2 cm-5.9 MV A Vmax: 0.82 m/s ( - ) cm) MV E/A: 0.59 ( - ) LVDs (2D): 3.7 cm (2.1 cm-4 cm) LVPWd (2D): 1.2 cm (0.6 cm-1 cm) LVEF (2D): 48 (>=54 %) Continued Measurements: Valvular Assessment AV/MV Valvular Assessment TV/PV Name Value Name Value MV E' Septal: 0.06 m/s CVP (est.): 5 mmHg MV E/E' Septal: 7.90 MV E/E' Lateral: 10.70 Patient: GINA HOOPER Study Date: 05/10/2017 Page 1 of 2 11:29 AM Findings: Left Ventricle: Normal size left ventricle. Mild concentric LV hypertrophy. Low normal left ventricular systolic function. EF is 48 %. No regional wall motion abnormality. Diastolic dysfunction is present. . Technically difficult exam due to patient combativeness and respiratory interference. There is no obvious wall motion noted with the limited views available. . Left Atrium: The left atrium is normal in size. Right Atrium: The right atrium is not well visualized. Mitral Valve: The mitral valve is normal in appearance. There is no mitral valve regurgitation. Aortic Valve: Mild aortic cusp calcification is noted. Tricuspid Valve: The tricuspid valve appears normal. The pulmonary artery pressure is normal. Mild tricuspid regurgitation is present. Pulmonic Valve: Pulmonary valve not visualized. Pericardium: No pericardial effusion. Exam Comments: Limited views available, no subcostal views available,. (No Signature Object) Patient: GINA HOOPER Study Date: 05/10/2017 Page 2 of 2 11:29 AM [id number]
--- NOTE | 2017-05-10 13:52 | PDINTPN ---
Core Java Engineer Progress Note Assessment/Plan: Assessment: Acute respiratory failure: Associated with bilateral pulmonary infiltrates, right greater than left. Possible aspiration pneumonia/pneumonitis verses a nosocomial acquired or viral pneumonia. History of MRSA in the past, so on vancomycin. Blood cultures negative to date. Entero/rhino virus PCR positive, but of unclear significance. Doubt congestive heart failure/diastolic dysfunction is causing pulmonary edema, but did get Lasix x2 yesterday. On BiPAP. No evidence of sepsis. Blood pressures are fine, lactates low. He is DNR per advanced directives. Abnormal mental status: On Precedex secondary to agitation and for compliance with BiPAP. He does have a significant underlying psychiatric disorder secondary to depression and bipolar, and underlying cognitive deficit secondary to substance abuse and previous trauma. Type 2 diabetes: Glucoses climbing to over 200. In part secondary to steroids. Will start p.r.n. coverage. Metabolic: On replacement protocols DVT prophylaxis: On enoxaparin GI prophylaxis: None. Will add Nutrition: None currently. On BiPAP. Possibly aspirated somewhat with sips yesterday. Will readdress in the a.m.. Plan: Continue present care in the ICU. Continue BiPAP support if needed. Will try a OxyMask and observe how he does. Will continue current antibiotic regimen. Consider narrowing tomorrow based on culture results. Hold on further diuresis for now. Add insulin sliding scale coverage, pantoprazole, decrease steroids. Follow laboratory, ABG, x-ray. 40 min of critical care time spent directly with the patient. Discussed with nursing, RT, hospitalist, multi disciplinary ICU team. Subjective: Sedated on Precedex. On BiPAP. Arouses, responds Objective: Vital Signs Temp Pulse Resp BP Pulse Ox 36.8 C 78 27 H 135/74 H 96 05/10/17 07:12 05/10/17 12:00 05/10/17 12:00 05/10/17 12:00 05/10/17 12:00 Laboratory Results 05/10/17 04:10 05/10/17 04:10 05/09/17 05/10/17 05/11/17 05:59 05:59 05:59 Intake Total 1550 717 Output Total 100 700 Balance 1450 17 PT 14.1 SEC (12.0-15.0) 05/06/17 13:40 INR 1.07 (0.83-1.16) 05/06/17 13:40 Laboratory Tests 05/10/17 05/10/17 11:00 12:00 Total Bilirubin 0.4 AST 59 ALT 84 H Ammonia 12.0 NT-Pro-B Natriuret Pep 1250 H Albumin 3.0 L Cardiac echo: Left ventricular ejection fraction low normal. Diastolic dysfunction present. Right ventricular systolic pressures are normal. Valves normal. CXR: Infiltrate appears less dense on the right, still diffuse however throughout right lung. Possible increased retrocardiac density? Physical Exam - Physical Exam General Appearance: other (Somnolent, arouses. On Precedex.) EENT: PERRL/EOMI, other (BiPAP in place) Neck: normal inspection (No JVD) Respiratory: lungs clear (Anteriorly), decreased breath sounds (at bases. Some rales at the right base.), No rhonchi, No wheezing Cardiac/Chest: regular rate, rhythm, systolic murmur Abdomen: normal bowel sounds, non-tender, soft Male Genitalia: other (Clements catheter now in place.) Skin: warm/dry, pallor Extremities: No pedal edema Neuro/Psych: no motor/sensory deficits (Appears to move all extremities weakly.) , cognition abnormalities (Lethargic, but will arouse. On Precedex. Responds appropriately to some simple questions.) ICD10 Worksheet Patient Problems: Problems Problem Status Onset Elevated troponin Acute Pneumonia Acute Respiratory failure Acute Sepsis Acute Clostridium difficile infection Acute Benign hypertension Chronic Bipolar disorder Chronic CAD - Coronary arteriosclerosis Chronic Diabetes mellitus Chronic Seizure disorder Chronic
[2017-05-10] MEDS ORDERED: D50W 25 GM/50 ML SYR IVP PRN (14:14)
[2017-05-10] MEDS ORDERED: PROTOCOL MAGNESIUM 1 DOSE IV PRN (14:19)
[2017-05-10] MEDS: PANTOPRAZOLE SODIUM 40 MG VIAL IVP SCH (15:28)
--- NOTE | 2017-05-10 16:08 | HOSPPROG ---
Hospitalist Progress Note Assessment/Plan: Assessment: 71 yo M p/w sepsis and possible aspiration pneumonia c/b acute diastolic CHF exacerbation, reactive airway exacerbation and resultant respiratory failure Plan: # Acute diastolic CHF exacerbation. Stabilized today, likely iatrogenic in setting of IVF w/ sepsis tx, evidenced by pulm edema/effusions on CT, escalating o2 requirements, tachypnea - Echo w/ dd, EF 48% - good UOP s/p 2 doses of IV lasix, just dose PRN - strict I/O, weights - give IV K # Acute reactive airway exacerbation. Stabilizing today, exp wheezes/bronchial breath sounds, likely 2/2 PNA precipitant - reduce dose IV steroids, cont scheduled nebs # Sepsis. POA, Evidenced by autonomic dysregulation in setting of infxn w/ end- organ failure including myocardial ischemia - stabilized, WBC downtrending # Possible aspiration pneumonia. POA, worsening R>L infiltrates on 05/09 CT w/ PCT 2.4, stable on 05/10 CXR - given hx of MRSA, place on Vanco, Zosyn, Azithro - will get HOTBED LEVER OPERATOR eval when off BiPAP # Acute Hypoxic Resp Failure. POA, Evidenced by escalating o2 requirements today (6LPM 88%, RR 30, visibly labored breathing w/ use of accessory muscles), 2/2 above, required BiPAP, needs ongoing # Acute on chronic encephalopathy. Evidenced by global brain dysfunction characterized as poor level of interaction, responsiveness, disorientation, all of which are an acute change from his baseline, as witnessed by a staff member who worked w/ patient as recently as 2 weeks ago at [facility], 2/2 toxic effects of infxn - managing w/ precedex due to agitation - NH4 wnl # Anxiety/depression - continue home Effexor # proph - lovenox # diet - NPO # code - DNR, but BiPAP w/in scope of care # dispo - ADD uncertain 35 minutes of critical care time spent today, assessing and reassessing patient on multiple occasions, remains high risk of worsening morbidity/mortality 2/2 issues outlined above. Subjective: patient opens eyes to voice, follows commands, agitated o/n Objective: Vital Signs Temp Pulse Resp BP Pulse Ox 36.8 C 78 27 H 135/74 H 96 05/10/17 07:12 05/10/17 12:00 05/10/17 12:00 05/10/17 12:00 05/10/17 12:00 Laboratory Results 05/10/17 04:10 05/10/17 04:10 05/09/17 05/10/17 05/11/17 05:59 05:59 05:59 Intake Total 1550 717 Output Total 100 700 Balance 1450 17 PT 14.1 SEC (12.0-15.0) 05/06/17 13:40 INR 1.07 (0.83-1.16) 05/06/17 13:40 - Physical Exam Constitutional: not in pain, chronically ill appearing, unkempt, No uncomfortable Cardiovascular: No systolic murmur, No irregularly irregular, No tachycardia, No edema Respiratory: reduced air movement (bilat bases), expiratory wheeze, rhonchi (on inspiration), other (on BiPAP mask) Gastrointestinal: normoactive bowel sounds, soft, non-tender abdomen, no palpable masses Genitourinary: stephenson in urethra Psychiatric: other (follows commands) ICD10 Worksheet Patient Problems: Problems Problem Status Onset Benign hypertension Chronic Diabetes mellitus Chronic Seizure disorder Chronic CAD - Coronary arteriosclerosis Chronic Bipolar disorder Chronic Clostridium difficile infection Acute Pneumonia Acute Sepsis Acute Respiratory failure Acute Elevated troponin Acute
[2017-05-10] MEDS: POTASSIUM Cl (KCl) 10 MEQ in NS 100 ML IV SCH ×3 (17:42→19:47)
[2017-05-10] MEDS: INSULIN REGULAR HUMAN 100 UNIT/ML SC SCH ×2 (18:55→23:26)
[2017-05-10] MEDS: LORazepam 2 MG/ML INJ IVP PRN (21:22)
[2017-05-10] MEDS: TAMSULOSIN HCL 0.4 MG CAP PO SCH (23:17)
[2017-05-11 01:11] LABS: POTASSIUM 2.9 mEq/L (3.5-5.2)
[2017-05-11] MEDS: LORazepam 2 MG/ML INJ IVP PRN ×2 (01:53→21:03)
[2017-05-11 01:54] LABS: POTASSIUM 3.3 mEq/L (3.5-5.2)
[2017-05-11] MEDS: POTASSIUM Cl (KCl) 100 ML IV SCH ×5 (04:00→13:00)
[2017-05-11] MEDS: IPRATROPIUM/ALBUTEROL 3 ML DEYVIAL IH SCH ×4 (04:25→21:42)
[2017-05-11 04:36] LABS: BASE EXCESS 2.2 mEq/L (-2.5-2.5); BICARBONATE 25 mEq/L (22-26); MEASURED OXYGEN SATURATION 96 % (92-95); PCO2 34 mmHg (34-38); PO2 80 mmHg (65-75); TCO2 26 mEq/L (23-27)
[2017-05-11 06:34] LABS: % IMMATURE GRANULYOCYTES 1.1 % (0.0-1.1); ABSOLUTE IMMATURE GRANULOCYTES 0.11 10^3/uL (0.00-0.10); ADD DIFF? NO; ADD MORPH? NO; ADD SCAN? YES; FRAGMENT RBC FLAG 0 (0-99); HEMATOCRIT 31.2 % (40.0-51.0); HEMOGLOBIN 10.3 g/dL (13.7-17.5); LEFT SHIFT FLG 10 (0-99); LIPEMIA HEMOLYSIS FLAG 80 (0-99); MEAN CELL HEMOGLOBIN 26.3 pg (27.9-34.1); MEAN CELL VOLUME 79.6 fL (81.5-99.8); MEAN PLATELET VOLUME 10.6 fL (8.7-11.7); PLATELET CLUMPS FLAG 0 (0-99); PLATELET COUNT 300 10^3/uL (150-400); RED BLOOD CELL COUNT 3.92 10^6/uL (4.40-6.38); RED CELL DISTRIBUTION WIDTH 14.8 % (11.5-15.2)
[2017-05-11 06:43] LABS: ATYPICAL LYMPHOCYTE FLAG 140 (0-99)
[2017-05-11 06:55] LABS: SCAN NEGATIVE
[2017-05-11 06:57] LABS: ANION GAP 15 mEq/L (8-16); CALCIUM 7.6 mg/dL (8.5-10.4); CARBON DIOXIDE 24 mEq/l (22-31); CHLORIDE 107 mEq/L (97-110); CREATININE 1.2 mg/dL (0.7-1.3); GLOMERULAR FILTRATION RATE 60; GLUCOSE 230 mg/dL (70-100); MAGNESIUM 2.4 mg/dL (1.6-2.3); POTASSIUM 3.4 mEq/L (3.5-5.2); SODIUM 146 mEq/L (134-144)
[2017-05-11] MEDS: PIPERACILLIN/TAZO 3.375 GM/DEX 50 ML IV SCH ×4 (08:11→23:37)
[2017-05-11] MEDS: methylPREDNISolone SOD SUCC 125 MG/2 ML VIAL IVP SCH (08:12)
[2017-05-11] MEDS: PANTOPRAZOLE SODIUM 40 MG VIAL IVP SCH (08:12)
[2017-05-11] MEDS: VANCOMYCIN 1.25 GM in D5W 250 ML IV SCH ×2 (08:12→18:18)
[2017-05-11] MEDS: ENOXAPARIN 40 MG/0.4 ML SYR SC SCH (08:12)
[2017-05-11] MEDS: POTASSIUM CL 20 MEQ TAB PO SCH (08:13)
[2017-05-11] MEDS: MULTIVITAMINS 1 EACH TAB PO SCH (08:13)
[2017-05-11] MEDS: INSULIN REGULAR HUMAN 100 UNIT/ML SC SCH ×5 (08:13→20:55)
[2017-05-11] MEDS: AZITHROMYCIN IV 500 MG in D5W 250 ML IV SCH (08:13)
[2017-05-11] MEDS: VENLAFAXINE XR 75 MG CAP PO SCH (08:13)
[2017-05-11] MEDS: EUCERIN/HYDROCERIN CREAM 120GM JAR TP SCH ×2 (13:39→20:56)
--- NOTE | 2017-05-11 15:04 | PDINTPN ---
Software Project Lead Progress Note Assessment/Plan: Assessment: Acute respiratory failure: Improving, off BiPAP, on OxyMask at 6-10 L. Associated with bilateral pulmonary infiltrates, right significantly greater than left. Probable aspiration pneumonia/pneumonitis verses a nosocomial acquired or viral pneumonia. History of MRSA in the past, so on vancomycin, but cultures negative so appropriate to discontinue. Blood cultures negative. Entero/rhino virus PCR positive, but of unclear significance. Doubt congestive heart failure/diastolic dysfunction is causing pulmonary edema, but has received intermittent Lasix. No evidence of sepsis. Blood pressures are fine, lactates low. Advanced directives: He is DNR per his and family wishes. Abnormal mental status: Off Precedex. He does have a significant underlying psychiatric disorder secondary to depression and bipolar, and underlying cognitive deficit secondary to substance abuse and distant head trauma by report. Type 2 diabetes: Glucoses climbing to over 200. In part secondary to steroids. On sliding scale p.r.n. coverage will increase. Metabolic: On replacement protocols DVT prophylaxis: On enoxaparin GI prophylaxis: On pantoprazole IV Nutrition: None currently. Appears to be able to take only small sips safely. With larger mouthfulls there is evidence of aspiration. For video esophagram with speech therapy tomorrow... Plan: Continue present care in the ICU. Continue O2, BiPAP support if needed. Will continue Zosyn, DC vancomycin, stop azithromycin after 5 days. Intermittent Lasix diuresis if needed. Increase insulin sliding scale coverage , continue pantoprazole, decrease steroids. Follow laboratory, ABG and x-ray as needed. 40 min of critical care time spent directly with the patient. Discussed with patient, speech therapy, nursing, RT, hospitalist, multi disciplinary ICU team. Subjective: More alert, doing well. On less oxygen. Denies significant shortness of breath , pain. Objective: Vital Signs Temp Pulse Resp BP Pulse Ox 36.6 C 92 19 114/60 93 05/11/17 12:00 05/11/17 12:00 05/11/17 12:00 05/11/17 12:05/11/17 12:00 Microbiology 05/09/17 14:37 - Final Sputum, Induced/Suctioned Laboratory Results 05/11/17 06:00 05/11/17 06:00 05/10/17 05/11/17 05/12/17 05:59 05:59 05:59 Intake Total 717 501 Output Total 700 1200 Balance 17 -699 PT 14.1 SEC (12.0-15.0) 05/06/17 13:40 INR 1.07 (0.83-1.16) 05/06/17 13:40 Laboratory Tests 05/11/17 05/11/17 04:15 06:00 pCO2 34 pO2 80 H ABG pH 7.48 H ABG O2 Saturation 96 H Total O2 Concentration 10.0 Calcium 7.6 L Magnesium 2.4 H CXR: About the same. Dense right-sided infiltrate, left fairly clear Physical Exam - Physical Exam General Appearance: mild distress (Restless at times), other (Arousable, responsive) EENT: PERRL/EOMI, other (OxyMask in place) Neck: normal inspection (No obvious jugular venous distension), No lymphadenopathy (R), No lymphadenopathy (L), No thyromegaly Respiratory: decreased breath sounds (Bilaterally), rales (On the right), No rhonchi, No wheezing Cardiac/Chest: regular rate, rhythm Abdomen: normal bowel sounds, non-tender, soft, other (Seen by speech therapy, needs video esophagram prior to advancing diet. Is able to take small sips of clears.) Male Genitalia: other (n Fley catheter) Skin: warm/dry, pallor Extremities: pedal edema (Trace), other (Right foot with previous toe amputations, looks fine) Neuro/Psych: no motor/sensory deficits (Moves all extremities equally), cognition abnormalities (Difficult to assess, but improving, appears intact.) ICD10 Worksheet Patient Problems: Problems Problem Status Onset Benign hypertension Chronic Diabetes mellitus Chronic Seizure disorder Chronic CAD - Coronary arteriosclerosis Chronic Bipolar disorder Chronic Clostridium difficile infection Acute Pneumonia Acute Sepsis Acute Respiratory failure Acute Elevated troponin Acute
--- NOTE | 2017-05-11 15:22 | HOSPPROG ---
Hospitalist Progress Note Assessment/Plan: Assessment: 71 yo M p/w sepsis and likely aspiration pneumonia c/b acute diastolic CHF exacerbation, reactive airway exacerbation, and resultant respiratory failure Plan: # Sepsis. POA, Evidenced by autonomic dysregulation in setting of infxn w/ end- organ failure including myocardial ischemia and resp failure, resolved # Likely aspiration pneumonia. POA, worsening R>L infiltrates on 05/09 CT w/ PCT 2.4, stable on 05/11 CXR - given hx of MRSA, placed on Vanco, Zosyn, Azithro - d/w Dr. Herring, he advises plan to DC Vanco today and gauge ongoing response from Zosyn/Azithro - will get BUSINESS OFFICE REPRESENTATIVE eval/VFSS # Acute diastolic CHF exacerbation. Stabilized, likely iatrogenic in setting of IVF w/ sepsis tx, evidenced by pulm edema/effusions on CT, escalating o2 requirements, tachypnea - Echo w/ dd, EF 48% - good UOP s/p 2 doses of IV lasix, give one dose IV lasix today to keep net even in setting of IVF w/ Abx - strict I/O, weights - give IV K/Mg # Acute reactive airway exacerbation. Stabilized, exp wheezes/bronchial breath sounds, likely 2/2 PNA precipitant - reduced dose IV steroids, cont scheduled nebs # Acute Hypoxic Resp Failure. POA, Evidenced by escalating o2 requirements, required BiPAP, needs ongoing oximizer high flow - currently at 7LPM # Acute on chronic encephalopathy. Mental status improving today w/ somnolence but verbally arousable and following commands, still remains less engaging/ interactive than his baseline, which is impaired and requiring asst w/ ADLs at [facility], after years of mental health dx and substance abuse - managing w/ precedex due to agitation PRN # Anxiety/depression - continue home Effexor # proph - lovenox # diet - NPO, BUSINESS OFFICE REPRESENTATIVE/VFSS # code - DNR, but BiPAP w/in scope of care # dispo - ADD uncertain High level of medical complexity, remains high risk of worsening morbidity/ mortality 2/2 issues outlined above. Subjective: patient wants to drink alla chai and water Objective: Vital Signs Temp Pulse Resp BP Pulse Ox 36.6 C 92 19 114/60 93 05/11/17 12:00 05/11/17 12:00 05/11/17 12:00 05/11/17 12:00 05/11/17 12:00 Microbiology 05/09/17 14:37 - Final Sputum, Induced/Suctioned Laboratory Results 05/11/17 06:00 05/11/17 06:00 05/10/17 05/11/17 05/12/17 05:59 05:59 05:59 Intake Total 717 501 Output Total 700 1200 Balance 17 -699 PT 14.1 SEC (12.0-15.0) 05/06/17 13:40 INR 1.07 (0.83-1.16) 05/06/17 13:40 - Physical Exam Constitutional: no apparent distress, not in pain, chronically ill appearing, uncomfortable Cardiovascular: JVD, No systolic murmur, No irregularly irregular, No tachycardia, No edema Respiratory: reduced air movement (bilat bases), inspiratory crackles (mid posterior segs), other (ongoing tachypnea), No expiratory wheeze, No bronchial breath sounds Gastrointestinal: normoactive bowel sounds, soft, non-tender abdomen, no palpable masses, No distension Neurologic: No weakness (motor 5/5 all ext) Psychiatric: not anxious, flat affect, other (lethargic but arousable to voice) , No agitated ICD10 Worksheet Patient Problems: Problems Problem Status Onset Benign hypertension Chronic Diabetes mellitus Chronic Seizure disorder Chronic CAD - Coronary arteriosclerosis Chronic Bipolar disorder Chronic Clostridium difficile infection Acute Pneumonia Acute Sepsis Acute Respiratory failure Acute Elevated troponin Acute
--- NOTE | 2017-05-11 16:26 | ASMTCMCOM ---
CM Note CM Note Notes: Patient follows commands, to have a swallow eval. Plans to return to [facility]. Date Signed: 05/11/2017 04:26 PM Electronically Signed By:Priyanka Denson LCSW
[2017-05-11 16:39] LABS: POTASSIUM 3.1 mEq/L (3.5-5.2)
[2017-05-11] MEDS ORDERED: D50W 25 GM/50 ML SYR IVP PRN (16:44)
[2017-05-11] MEDS ORDERED: D50W 25 GM/50 ML VIAL IVP PRN (16:45)
[2017-05-11] MEDS ORDERED: FUROSEMIDE 40 MG/4 ML VIAL IVP ONE (16:54)
[2017-05-11] MEDS: POTASSIUM Cl (KCl) 10 MEQ in NS 100 ML IV SCH ×4 (18:17→21:54)
[2017-05-11] MEDS: TAMSULOSIN HCL 0.4 MG CAP PO SCH (20:36)
[2017-05-12] MEDS: LORazepam 2 MG/ML INJ IVP PRN (01:41)
[2017-05-12 04:56] LABS: % IMMATURE GRANULYOCYTES 1.1 % (0.0-1.1); ABSOLUTE IMMATURE GRANULOCYTES 0.11 10^3/uL (0.00-0.10); ADD DIFF? NO; ADD MORPH? NO; ADD SCAN? NO; ATYPICAL LYMPHOCYTE FLAG 70 (0-99); FRAGMENT RBC FLAG 0 (0-99); HEMATOCRIT 28.6 % (40.0-51.0); HEMOGLOBIN 9.3 g/dL (13.7-17.5); LEFT SHIFT FLG 0 (0-99); LIPEMIA HEMOLYSIS FLAG 80 (0-99); MEAN CELL HEMOGLOBIN 26.4 pg (27.9-34.1); MEAN CELL HEMOGLOBIN CONCENTR. 32.5 g/dL (32.4-36.7); MEAN CELL VOLUME 81.3 fL (81.5-99.8); MEAN PLATELET VOLUME 10.1 fL (8.7-11.7); PLATELET CLUMPS FLAG 0 (0-99); PLATELET COUNT 285 10^3/uL (150-400); RED BLOOD CELL COUNT 3.52 10^6/uL (4.40-6.38); RED CELL DISTRIBUTION WIDTH 14.9 % (11.5-15.2)
[2017-05-12] MEDS: PIPERACILLIN/TAZO 3.375 GM/DEX 50 ML IV SCH ×4 (05:05→23:44)
[2017-05-12 05:20] LABS: ANION GAP 8 mEq/L (8-16); CALCIUM 7.1 mg/dL (8.5-10.4); CARBON DIOXIDE 28 mEq/l (22-31); CHLORIDE 108 mEq/L (97-110); CREATININE 0.9 mg/dL (0.7-1.3); GLOMERULAR FILTRATION RATE > 60; GLUCOSE 154 mg/dL (70-100); MAGNESIUM 2.5 mg/dL (1.6-2.3); POTASSIUM 3.6 mEq/L (3.5-5.2); SODIUM 144 mEq/L (134-144)
[2017-05-12] MEDS: VANCOMYCIN 1.25 GM in D5W 250 ML IV SCH (05:40)
[2017-05-12] MEDS: IPRATROPIUM/ALBUTEROL 3 ML DEYVIAL IH SCH ×4 (05:59→20:56)
[2017-05-12] MEDS ORDERED: POTASSIUM CL 10 MEQ TAB PO ONE (08:46)
[2017-05-12] MEDS: INSULIN REGULAR HUMAN 100 UNIT/ML SC SCH ×4 (08:48→22:23)
[2017-05-12] MEDS: ENOXAPARIN 40 MG/0.4 ML SYR SC SCH (08:48)
[2017-05-12] MEDS: AZITHROMYCIN IV 500 MG in D5W 250 ML IV SCH (08:48)
[2017-05-12] MEDS: PANTOPRAZOLE SODIUM 40 MG VIAL IVP SCH (08:49)
[2017-05-12] MEDS: MULTIVITAMINS 1 EACH TAB PO SCH (08:49)
[2017-05-12] MEDS: EUCERIN/HYDROCERIN CREAM 120GM JAR TP SCH ×2 (08:49→22:24)
[2017-05-12] MEDS: VENLAFAXINE XR 75 MG CAP PO SCH (08:49)
[2017-05-12] MEDS: POTASSIUM CL 20 MEQ TAB PO SCH (08:49)
[2017-05-12] MEDS ORDERED: methylPREDNISolone SOD SUCC 40 MG/ML VIAL IVP SCH (09:00)
--- NOTE | 2017-05-12 09:55 | PDINTPN ---
Reference Library Assistant Progress Note Assessment/Plan: Assessment/plan: * Acute respiratory failure: Improving, off BiPAP, on OxyMask at 6-10 L. Associated with bilateral pulmonary infiltrates, right significantly greater than left. Probable aspiration pneumonia/pneumonitis verses a nosocomial acquired or viral pneumonia. History of MRSA in the past, so on vancomycin, but cultures negative so appropriate to discontinue. Blood cultures negative. Entero/rhino virus PCR positive, but of unclear significance. Doubt congestive heart failure/diastolic dysfunction is causing pulmonary edema, but has received intermittent Lasix. * Advanced directives: He is DNR per his and family wishes. * Abnormal mental status: Off Precedex. He does have a significant underlying psychiatric disorder secondary to depression and bipolar, and underlying cognitive deficit secondary to substance abuse and distant head trauma by report. Mental status markedly improved * Type 2 diabetes: Glucoses climbing to over 200. In part secondary to steroids. On sliding scale p.r.n. coverage will increase. * Metabolic: On replacement protocols * DVT prophylaxis: On enoxaparin * GI prophylaxis: On pantoprazole IV * Nutrition: None currently. Appears to be able to take only small sips safely. With larger mouthfulls there is evidence of aspiration. -For video esophagram with speech therapy tomorrow... * PT/OT * Out of bed Subjective: Sitting up in chair. Comfortable. Breathing less labored. Better energy Objective: Vital Signs Temp Pulse Resp BP Pulse Ox 36.3 C 76 16 108/57 L 92 05/11/17 20:00 05/12/17 08:00 05/12/17 08:00 05/12/17 08:00 05/12/17 08:00 Microbiology 05/06/17 14:35 Blood Culture - Final Blood 05/09/17 14:37 - Final Sputum, Induced/Suctioned Laboratory Results 05/12/17 04:45 05/12/17 04:45 05/11/17 05/12/17 05/13/17 05:59 05:59 05:59 Intake Total 501 2172 Output Total 1200 375 Balance -699 1797 PT 14.1 SEC (12.0-15.0) 05/06/17 13:40 INR 1.07 (0.83-1.16) 05/06/17 13:40 Chest [id number] by myself. Still with increased infiltrates on the right. Left side looks improved. Physical Exam - Physical Exam General Appearance: alert, no apparent distress EENT: PERRL/EOMI, normal ENT inspection Neck: non-tender, full range of motion Respiratory: crackles (Bibasilar right greater than left), No lungs clear, No respiratory distress Cardiac/Chest: normal peripheral pulses, regular rate, rhythm, systolic murmur Peripheral Pulses: 2+: carotid (R), carotid (L), femoral (R), femoral (L), dorsalis-pedis (R), dorsalis-pedis (L) Abdomen: normal bowel sounds, non-tender, soft Male Genitalia: deferred Rectal: deferred Skin: normal color, warm/dry Extremities: normal range of motion, non-tender, normal inspection, normal capillary refill Neuro/Psych: alert ICD10 Worksheet Patient Problems: Problems Problem Status Onset Elevated troponin Acute Pneumonia Acute Respiratory failure Acute Sepsis Acute Clostridium difficile infection Acute Benign hypertension Chronic Bipolar disorder Chronic CAD - Coronary arteriosclerosis Chronic Diabetes mellitus Chronic Seizure disorder Chronic
[2017-05-12] MEDS: metFORMIN HCL 500 MG TAB PO SCH ×2 (10:38→18:22)
--- NOTE | 2017-05-12 11:01 | HOSPPROG ---
Hospitalist Progress Note Assessment/Plan: DIAGNOSES: PLANS: SUBJECTIVE: OBJECTIVE Vitals reviewed: Obstetrician/Gynecologist, my review: Exam: alert oriented skin warm dry color ok resps not labored lungs clear BSs heart regular abd soft nondistended nontender, bowel sounds present limbs warm, no edema iv site ok Objective: Vital Signs Temp Pulse Resp BP Pulse Ox 36.3 C 72 18 108/57 L 99 05/11/17 20:00 05/12/17 10:39 05/12/17 10:39 05/12/17 08:00 05/12/17 10:39 Microbiology 05/06/17 14:35 Blood Culture - Final Blood 05/09/17 14:37 - Final Sputum, Induced/Suctioned Laboratory Results 05/12/17 04:45 05/12/17 04:45 05/11/17 05/12/17 05/13/17 06:59 06:59 06:59 Intake Total 501 2172 Output Total 1200 375 150 Balance -699 1797 -150 PT 14.1 SEC (12.0-15.0) 05/06/17 13:40 INR 1.07 (0.83-1.16) 05/06/17 13:40 ICD10 Worksheet Patient Problems: Problems Problem Status Onset Elevated troponin Acute Pneumonia Acute Respiratory failure Acute Sepsis Acute Clostridium difficile infection Acute Benign hypertension Chronic Bipolar disorder Chronic CAD - Coronary arteriosclerosis Chronic Diabetes mellitus Chronic Seizure disorder Chronic
--- NOTE | 2017-05-12 11:07 | HOSPPROG ---
Hospitalist Progress Note Assessment/Plan: DIAGNOSES: -acute hypoxemic respiratory failure due to likely aspiration with chronic lung disease -unilateral infiltrate raises question of aspiration pneumonitis -rhino virus may also be playing a role in causative nature of his acute respiratory failure -exacerbation of reactive airway disease -acute on chronic encephalopathy -uncontrolled type 2 diabetes mellitus, patient on no medications at home and currently receiving steroid aggravating numbers -anemia, multifactorial, has dropped by 1 point of hemoglobin today -will need to watch be sure there is no evidence of bleeding or further decrease in hemoglobin -I do not believe the patient has had sepsis during this episode, only real vital sign abnormality has been tachypnea from respiratory failure -I do not believe the patient has had diastolic congestive heart failure during this episode, suspect there may have been some right-sided heart failure; at this point do not believe that further diuresis is indicated particularly with a BUN as high as it has gotten Overall it appears there may have been a mild amount of progress since yesterday but not much change. He has been off BiPAP since about 4:00 p.m. yesterday. Will watch further in SDU to make sure that he is stable, in if he remains stable may be able to consider moving to med surge later today or tomorrow. I have reviewed in detail with Dr. Alfred Maza. PLANS: -continue current respiratory care -continue current antibiotic -no further diuresis, follow fluid status closely -follow hemoglobin closely, have ordered repeat testing -I have added some metformin which I think he should take at home as well as here -follow sugars closely and will make adjustments to insulin dosing as needed; did not think insulin will be useful management strategy for him as an outpatient, and his blood sugar goals in the long run should be conservative given his short expected life span SUBJECTIVE: Patient not really conversant with me this morning, quite somnolent although he does arouse to awake Per nurse's is had a quiet night OBJECTIVE Vitals reviewed: No fever, vital signs otherwise stable Retort Forker, my review: Sinus rhythm Exam: Currently somnolent but has been more awake when working with nursing and therapy staff; sounds like he may be back to close to his baseline mentation but I am unable to assess at this time skin warm dry color ok resps not labored lungs diminished BSs without audible rales or wheezes heart regular abd soft nondistended nontender, bowel sounds present limbs warm, no edema iv site ok Laboratory data: BUN remains elevated in low 40s, creatinine stable at 1 White blood cell count remains elevated Some decrease in hemoglobin today, will need to be followed Sugars remain consistently elevated overall Chest x-ray: My interpretation of images, there is persisting diffuse right lung infiltrate, left lung looks good, no signs of pulmonary edema or heart failure Objective: Vital Signs Temp Pulse Resp BP Pulse Ox 36.3 C 72 18 108/57 L 99 05/11/17 20:00 05/12/17 10:39 05/12/17 10:39 05/12/17 08:00 05/12/17 10:39 Microbiology 05/06/17 14:35 Blood Culture - Final Blood 05/09/17 14:37 - Final Sputum, Induced/Suctioned Laboratory Results 05/12/17 04:45 05/12/17 04:45 05/11/17 05/12/17 05/13/17 06:59 06:59 06:59 Intake Total 501 2172 Output Total 1200 375 150 Balance -699 1797 -150 PT 14.1 SEC (12.0-15.0) 05/06/17 13:40 INR 1.07 (0.83-1.16) 05/06/17 13:40 - Time Spent With Patient Time Spent with Patient: greater than 35 minutes Time Spent with Patient: Greater than 35 minutes spent on this patients care, greater than 50% of time spent counseling, educating, and coordinating care regarding the above mentioned plan. ICD10 Worksheet Patient Problems: Problems Problem Status Onset Elevated troponin Acute Pneumonia Acute Respiratory failure Acute Sepsis Acute Clostridium difficile infection Acute Benign hypertension Chronic Bipolar disorder Chronic CAD - Coronary arteriosclerosis Chronic Diabetes mellitus Chronic Seizure disorder Chronic
[2017-05-12 19:41] LABS: POTASSIUM 4.3 mEq/L (3.5-5.2)
[2017-05-12] MEDS: TAMSULOSIN HCL 0.4 MG CAP PO SCH (22:23)
[2017-05-13] MEDS: LORazepam 0.5 MG TAB PO PRN ×3 (01:56→22:31)
[2017-05-13 05:19] LABS: % IMMATURE GRANULYOCYTES 1.1 % (0.0-1.1); ABSOLUTE IMMATURE GRANULOCYTES 0.15 10^3/uL (0.00-0.10); ADD DIFF? NO; ADD MORPH? NO; ADD SCAN? NO; ATYPICAL LYMPHOCYTE FLAG 30 (0-99); FRAGMENT RBC FLAG 0 (0-99); HEMOGLOBIN 10.7 g/dL (13.7-17.5); LEFT SHIFT FLG 10 (0-99); LIPEMIA HEMOLYSIS FLAG 80 (0-99); MEAN CELL HEMOGLOBIN 25.8 pg (27.9-34.1); MEAN CELL HEMOGLOBIN CONCENTR. 31.5 g/dL (32.4-36.7); MEAN CELL VOLUME 82.1 fL (81.5-99.8); MEAN PLATELET VOLUME 10.1 fL (8.7-11.7); PLATELET CLUMPS FLAG 0 (0-99); PLATELET COUNT 337 10^3/uL (150-400); RED BLOOD CELL COUNT 4.14 10^6/uL (4.40-6.38); RED CELL DISTRIBUTION WIDTH 14.9 % (11.5-15.2)
[2017-05-13] MEDS: PIPERACILLIN/TAZO 3.375 GM/DEX 50 ML IV SCH ×4 (05:19→23:03)
[2017-05-13] MEDS: IPRATROPIUM/ALBUTEROL 3 ML DEYVIAL IH SCH ×4 (06:11→21:46)
[2017-05-13 06:17] LABS: MAGNESIUM 2.5 mg/dL (1.6-2.3); POTASSIUM 4.4 mEq/L (3.5-5.2)
[2017-05-13] MEDS: INSULIN REGULAR HUMAN 100 UNIT/ML SC SCH ×4 (08:06→20:53)
[2017-05-13] MEDS: MULTIVITAMINS 1 EACH TAB PO SCH (08:41)
[2017-05-13] MEDS: POTASSIUM CL 20 MEQ TAB PO SCH (08:41)
[2017-05-13] MEDS: VENLAFAXINE XR 75 MG CAP PO SCH (08:42)
[2017-05-13] MEDS: metFORMIN HCL 500 MG TAB PO SCH ×2 (08:42→17:21)
[2017-05-13] MEDS: ENOXAPARIN 40 MG/0.4 ML SYR SC SCH (08:42)
[2017-05-13] MEDS: EUCERIN/HYDROCERIN CREAM 120GM JAR TP SCH ×2 (08:43→20:54)
[2017-05-13] MEDS: AZITHROMYCIN IV 500 MG in D5W 250 ML IV SCH (08:43)
[2017-05-13] MEDS: PANTOPRAZOLE SODIUM 40 MG VIAL IVP SCH (08:43)
--- NOTE | 2017-05-13 08:53 | HOSPPROG ---
Hospitalist Progress Note Assessment/Plan: DIAGNOSES: -acute hypoxemic respiratory failure due to likely aspiration with chronic lung disease -unilateral infiltrate raises question of aspiration pneumonitis -rhino virus may also be playing a role in causative nature of his acute respiratory failure -exacerbation of reactive airway disease -acute on chronic encephalopathy -uncontrolled type 2 diabetes mellitus, patient on no medications at home and currently receiving steroid aggravating numbers -anemia, multifactorial, a bit better today -I do not believe the patient has had sepsis during this episode, only real vital sign abnormality has been tachypnea from respiratory failure -I do not believe the patient has had diastolic congestive heart failure during this episode, suspect there may have been some right-sided heart failure; at this point do not believe that further diuresis is indicated particularly with a BUN as high as it has gotten Overall it appears there may have been a mild amount of progress since yesterday but not much change. He has been off BiPAP since about 4:00 p.m. yesterday. Will watch further in SDU to make sure that he is stable, in if he remains stable may be able to consider moving to med surge later today or tomorrow. I have reviewed in detail with Dr. Alfred Maza. PLANS: -continue current respiratory care, will begin to decrease steroid dose -continue current antibiotic -no further diuresis, follow fluid status closely -follow hemoglobin closely, have ordered repeat testing -I have added some metformin which I think he should take at home as well as here -follow sugars closely and will adjust treatment as indicated, at this time will decrease his steroid dose and likely decreases sliding scale insulin after review of today sugars; did not think insulin will be useful management strategy for him as an outpatient, and his blood sugar goals in the long run should be conservative given his short expected life span SUBJECTIVE: Feels better today No shortness of breath 9 less cough No pain or discomfort, ate breakfast well OBJECTIVE Vitals reviewed: No fever, vital signs otherwise stable Telecommunications Repairer, my review: Sinus rhythm Exam: Wide awake this morning, very talkative relaxed and better oriented skin warm dry color ok resps not labored lungs diminished BSs without audible rales or wheezes heart regular abd soft nondistended nontender, bowel sounds present limbs warm, no edema iv site ok Laboratory data: Makes him remains slightly high at 2.5 White blood cell count high at 13, suspect due to steroid Hemoglobin increase today Sugars are better still elevated Chest x-ray: My interpretation of images, there is persisting diffuse right lung infiltrate, left lung looks good, no signs of pulmonary edema or heart failure Objective: Vital Signs Temp Pulse Resp BP Pulse Ox 37.0 C 106 H 18 110/71 92 05/13/17 08:00 05/13/17 08:00 05/13/17 08:00 05/13/17 08:00 05/13/17 08:00 Microbiology 05/09/17 14:37 - Final Sputum, Induced/Suctioned Sputum Culture - Final Yakelin Albicans 05/06/17 14:35 Blood Culture - Final Blood Laboratory Results 05/13/17 05:00 05/13/17 05:00 05/12/17 05/13/17 05/14/17 06:59 06:59 06:59 Intake Total 2172 1150 Output Total 375 980 Balance 1797 170 PT 14.1 SEC (12.0-15.0) 05/06/17 13:40 INR 1.07 (0.83-1.16) 05/06/17 13:40 ICD10 Worksheet Patient Problems: Problems Problem Status Onset Elevated troponin Acute Pneumonia Acute Respiratory failure Acute Sepsis Acute Clostridium difficile infection Acute Benign hypertension Chronic Bipolar disorder Chronic CAD - Coronary arteriosclerosis Chronic Diabetes mellitus Chronic Seizure disorder Chronic
[2017-05-13] MEDS: methylPREDNISolone SOD SUCC 40 MG/ML VIAL IVP SCH (09:05)
[2017-05-13] MEDS: CALCIUM CARBONATE 500 MG CHEWABLE TAB PO PRN (10:14)
[2017-05-13] MEDS: TAMSULOSIN HCL 0.4 MG CAP PO SCH (20:52)
[2017-05-13] MEDS: ACETAMINOPHEN 325 MG TAB PO PRN (20:52)
[2017-05-13 21:46] LABS: POTASSIUM 4.6 mEq/L (3.5-5.2)
[2017-05-14] MEDS: PIPERACILLIN/TAZO 3.375 GM/DEX 50 ML IV SCH ×2 (05:02→13:17)
[2017-05-14 05:31] LABS: POTASSIUM 4.3 mEq/L (3.5-5.2)
[2017-05-14] MEDS: IPRATROPIUM/ALBUTEROL 3 ML DEYVIAL IH SCH ×2 (05:48→10:58)
[2017-05-14 08:36] VITALS: BP 120/73; TEMP 98.1
[2017-05-14] MEDS ORDERED: AZITHROMYCIN 250 MG TAB PO SCH (09:00)
[2017-05-14] MEDS: ENOXAPARIN 40 MG/0.4 ML SYR SC SCH (09:54)
[2017-05-14] MEDS: POTASSIUM CL 20 MEQ TAB PO SCH (09:54)
[2017-05-14] MEDS: metFORMIN HCL 500 MG TAB PO SCH (09:54)
[2017-05-14] MEDS: methylPREDNISolone SOD SUCC 40 MG/ML VIAL IVP SCH (09:55)
[2017-05-14] MEDS: VENLAFAXINE XR 75 MG CAP PO SCH (09:55)
[2017-05-14] MEDS: MULTIVITAMINS 1 EACH TAB PO SCH (09:55)
[2017-05-14] MEDS: INSULIN REGULAR HUMAN 100 UNIT/ML SC SCH ×2 (09:56→13:17)
[2017-05-14 11:10] VITALS: PULSE 80; RESP 20; O2SAT 91
--- NOTE | 2017-05-14 12:12 | PDIAF ---
- Diagnosis Diagnosis: CAP Code Status: Do Not Resuscitate - Medication Management Discharge Medications: Medications to Continue on Transfer Acetaminophen [Tylenol] 650 mg PO Q6HRS PRN 07/06/13 [Last Taken Unknown] Bisacodyl [Dulcolax Rectal (OTC)] 10 mg TN DAILY PRN 07/06/13 [Last Taken Unknown] Calcium Carbonate [Tums 500MG (*)] 1,000 mg PO Q2 PRN 07/06/13 [Last Taken Unknown] MAG HYDROX/AL HYDROX/SIMETH [Mylanta Liquid] 2 tbs PO Q8HRS PRN 07/06/13 [Last Taken Unknown] Magnesium Hydroxide [Milk of Magnesia (*)] 30 ml PO DAILY PRN 07/06/13 [Last Taken Unknown] Multivitamins [Multivitamin (*)] 1 each PO DAILY 07/06/13 [Last Taken 03/25/14] Polyethylene Glycol 3350 [Miralax 17 gm (*)] 17 gm PO DAILY PRN 07/06/13 [Last Taken Unknown] Tamsulosin HCl [Flomax 0.4 MG (*)] 0.4 mg PO HS 07/06/13 [Last Taken 03/24/14] Polyvinyl Alcohol [Artificial Tears] 1 drop EACHEYE DAILY PRN #0 01/13/14 [Last Taken Unknown] Hydrocortisone 1% [Hydrocortisone 1% cream (*)] 1 luz maria TP TID PRN 05/06/17 [Last Taken Unknown] Ipratropium/Albuterol [Duoneb (*)] 3 ml IH Q4HRS PRN 05/06/17 [Last Taken Unknown] LORazepam [Ativan (*)] 0.5 mg PO Q4HRS PRN 05/06/17 [Last Taken Unknown] Loperamide HCl [Imodium 2 mg (*)] 2 mg PO Q3HRS PRN 05/06/17 [Last Taken Unknown ] Mineral Oil/Petrolatum,White [Eucerin Cream (*)] 1 luz maria TP BID 05/06/17 [Last Taken Unknown] Ondansetron HCl [Zofran] 4 mg PO Q8HRS PRN 05/06/17 [Last Taken Unknown] Venlafaxine Xr [Effexor Xr 75MG (*)] 225 mg PO DAILY 05/06/17 [Last Taken Unknown] Calcium Carbonate [Tums 500MG (*)] 500 mg PO TID PRN tab.chew 05/14/17 [Last Taken Unknown] guaiFENesin/DEXTROMETHORPHAN [Robitussin Dm Oral Liquid (*)] 10 ml PO Q4HRS PRN ml 05/14/17 [Last Taken Unknown] metFORMIN HCL [Glucophage 500 mg (*)] 500 mg PO BIDMEAL tab 05/14/17 [Last Taken Unknown] Discharge Medications: Refer to the Discharge Home Medication list for PRN reason. - Orders Services needed: Registered Nurse, Physical Therapy, Occupational Therapy Isolation Type: Droplet Isolation Diet Recommendation: ADA 2200 consistent carb Diet Texture: Dysphagia 3 - Advanced - Moist, Bite-Size, Thin Liquids, Meds Whole w/Liquids - Follow Up Care Current Providers and Referrals: VIRGINIE EDWARDS [Other] - As per Instructions
[2017-05-14] MEDS: EUCERIN/HYDROCERIN CREAM 120GM JAR TP SCH (13:20)
--- NOTE | 2017-05-14 16:29 | ASDISCHSUM ---
Discharge Information Plan Status:SNF Medically Cleared to Leave:05/13/2017 Discharge Date:05/14/2017 02:46 PM D/C Disposition[facility] ADT D/C Disposition:[facility] Facility Projected Discharge Date:05/14/2017 11:00 AM Transportation at D/C: Discharge Delay Reason: Follow-Up Date:05/14/2017 11:00 AM Discharge Slot: Final Diagnosis:Asp PNA, CHF, RAD, Respiratory Failure Placement Information Referral Type:*Penitentiary/SNF Referral ID:[id number] Provider Name:Amanda Machado/[facility] Address 1:[address] Phone Number: Address 2: Fax Number: [facility]:[place] Selection Factors: State:[place] Patient Contact Information Contact Name:MIGUEL ÁNGEL Relationship:Daughter Address: Work Phone: City: [facility] Phone: [facility] Code:[place] Email: Financial Information Financial Class:Medicare Advantage Plans Primary Plan Desc:[facility] [employer] Primary Plan Number:[id number] Secondary Plan Desc:[employer] [place] Secondary Plan Number:[id number] Assessment Information [facility] Initial CM Assessment Living Arrangements What is your living Answers: WIth Caregiver arrangement? Who do you live with? Type Of Residence What kind of residence do Answers: [facility] Facility you live in? Type of Residence Facility Name Notes: [facility] Discharge Plan Comments Coordination Status Comments Notes: Patient is a 71yo gentleman with a hx of hypertension and diabetes who was admitted for sepsis, pneumonia, and acute hypoxic respiratory failure. Patient is a resident of [facility] and currently they have norovirus at the facility. PT/OT have been ordered. Patient will most likely return to [facility] after his medical treatment is complete. Awaiting OT/PT recommendations. CM will follow. Date Signed: 05/07/2017 12:54 PM Electronically Signed By:Tammy Kamara LCSW [facility] Progress Note CM Note CM Note Notes: Pt admitted from [facility]. Faxed them updates today. Pt requesting his glass, ipda and Astronomy book from . However, due to their norovirus outbreak, it is unlikey anyone can do that for him today per [place]ola. C/M will continue to follow. Date Signed: 05/08/2017 11:34 AM Electronically Signed By:Shawnee Gil LCSW [facility] Progress Note CM Note CM Note Notes: Patient follows commands, to have a swallow eval. Plans to return to [facility]. Date Signed: 05/11/2017 04:26 PM Electronically Signed By:Priyanka Denson LCSW Case Management Discharge Plan Note Case Management Discharge Discharge Order Complete? Answers: Yes Patient to Obtain Answers: Other Notes: [facility] Medications Transportation Arranged Answers: [facility] Transport will Pick (Date 05/14/2017 02:30 PM & Time) FILIPE Complete Answers: No Case Management Transport Answers: Yes Form Complete Faxed Final Orders Answers: Yes Agency/Facility Transfer Answers: Yes Report Printed & Faxed to Receiving Agency Family Notified Answers: No Discharge Comments Notes: BREN spoke w/ Dr. Orosco regarding d/c POC. Pt is being discharged back to [facility]. CM sent d/c orders. CM provided WILLIAN Patton w/ phone number to give report to [facility]. CM completed PCS form and put a copy in pts chart. CM available for changes. Plan: [facility] Date Signed: 05/14/2017 02:02 PM Electronically Signed By:ALL Tom Intervention Information Intervention Type:*IM-Signed Date of Service:05/14/2017 02:23 PM Patient Type:Inpatient Staff Member:Wilma Jeffries Hours: Discipline: Severity: Comment:
--- NOTE | 2017-05-15 02:13 | GDS ---
[f rep st] DISCHARGE SUMMARY DISCHARGE DIAGNOSES: 1. Sepsis secondary to pulmonary source. 2. Acute hypoxic respiratory failure. 3. Community-acquired pneumonia. 4. Anxiety/depression. CONSULTATIVE SERVICES: On this patient include Pulmonary. PROCEDURES: None. HOSPITAL COURSE: 1. Community-acquired pneumonia thought secondary to entero/rhino viruses and secondary bacterial pn eumonia. Patient completed a full course of IV antibiotics during his hospital stay, as well as burs t treatment with steroids. Patient is being discharged without antibiotics or steroids on continued inhaled beta agonists. 2. Sepsis secondary pulmonary source. Patient did complete antibiotic treatment. Patient did not g row a bacterial pathogen on any of his cultures during this hospital stay. Did complete his treatmen t course while inpatient. 3. Acute hypoxic respiratory failure secondary to community-acquired pneumonia. 4. Anxiety/depression. Patient was continued on his home dosing of Effexor. MEDICATIONS: At the time of disposition, please reference the med rec printed on 05/14/2017. FOLLOWUP APPOINTMENTS: Include the primary care provider for post discharge followup. PENDING STUDIES: At the time of this dictation are none. All blood and sputum cultures are final at the time of disposition. I spent greater than 30 minutes in the planning and coordination of this discharge. /[id number]/MODL
== END 2017-05-14 14:46 | DRG 871 ==
LOC: F2N 17:18 → F1N 05-07 15:07 → F2N 05-09 17:05 → F3E 05-13 14:16
PROVIDERS: ADMIT Internal Medicine; ATTEND Internal Medicine
DX: A41.9 Sepsis, unspecified organism (principal); J18.8 Other pneumonia, unspecified organism; J96.01 Acute respiratory failure with hypoxia; F41.8 Other specified anxiety disorders; I10 Essential (primary) hypertension; I25.2 Old myocardial infarction; J43.9 Emphysema, unspecified; E11.9 Type 2 diabetes mellitus without complications; N40.0 Benign prostatic hyperplasia without lower urinary tract symptoms; E87.6 Hypokalemia; Z66 Do not resuscitate
CPT/HCPCS: 80307; 92526-GN; 92610-GN; 92611-GN; 96365; 97162-GP; 97165-GO; 97530-GO; 97530-GP; 97535-GO; G0480; G8978-GP-CJ; G8979-GP-CI; G8987-GO-CK; G8988-GO-CI; G8996-GN-CI; G8997-GN-CH; G8997-GN-CI; G8998-GN-CI; J0456; J1650; J1815; J1940; J2060; J2543; J2920; J2930; J3370; Q9967

== ENCOUNTER 2017-10-28 16:36 | Emergency (ER) | payer OTHER, MEDICAID ==
--- NOTE | 2017-10-28 16:39 | EDPHY ---
HPI/HX/ROS/PE/MDM Narrative: CHIEF COMPLAINT: Fall, head laceration HPI: The patient is a 72 y/o male who is wheelchair bound due to prior back surgeries , arriving via EMS in a C-collar after he was found on the floor in his bedroom with a laceration to his forehead. It is unknown how long the patient was on the floor, but when nursing staff found him, the blood on the floor from his head laceration was dry. The patient does not remember the fall, but nursing staff believe it occurred when the patient was trying to move from his bed to his wheelchair. Per EMS, the patient is alert and oriented and is denying neck pain. He is currently complaining of right leg pain secondary to an abrasion. Denies headache, neck pain, numbness, chest pain, shortness of breath, abdominal pain, fever. This patient was most recently admitted to this hospital on 05/06/17, for sepsis secondary to a pulmonary source. He was discharged home on 05/14/17. Prior medical records reviewed including discharge summary on 05/14/17. REVIEW OF SYSTEMS: Aside from elements discussed in the HPI, a comprehensive 10-point review of systems was reviewed and is negative. PMH: Hypertension, depression, back surgeries SOCIAL HISTORY: Resides at [facility], single, retired PHYSICAL EXAM: General: Patient is alert, in no acute distress. ENT: 1cm linear laceration to the forehead. Eyes are normal to inspection. ENT inspection normal. Neck: C-collar in place. Normal inspection. Full range of motion. Respiratory: No respiratory distress. Breath sounds normal bilaterally. Cardiovascular: Regular rate and rhythm. Strong peripheral pulses. Normal cap refill. Abdomen: The abdomen is nontender to palpation. There are no peritoneal signs. There are normal bowel sounds. Back: Normal to inspection. No tenderness to palpation. Skin: Normal color. No rash. Warm and dry. Extremities: Right lower leg abrasion. Full range of motion. Neuro: Oriented x3. Normal motor function. Normal sensory function. ED Course: 163: I removed patient's C-collar as he cleared his c-spine 165: EKG was ordered and interpreted by myself as sinus rhythm with a rate of 71. Please see Meteor system for official reading. 172: I spoke with radiologist who reports there are no acute findings on patient's head CT. Procedure: Laceration repair. Verbal consent was obtained from the patient for repair fo the linear 1cm laceration on the forehead. The wound was cleaned with standard ED protocol, draped and explored to its base with a gloved finger. There were no deep structures involved. The wound was repaired in with Dermabond. The wound repair was simple. The procedure was performed by myself, Dr. España. Reassessed patient and preformed laceration repair. Return precautions provided ; patient is comfortable with this plan. MDM: This patient presents with presumed mechanical fall and small forehead laceration. CTH is negative. Labs are normal. Patient denies any complaints and would like to be discharged. I see no signs of ACS, SAH, epidural bleed, C- spine injury or extremity fracture. - Data Points Imaging Results: Imaging Impressions Head CT 10/28/17 16:45 Impression: 1. No posttraumatic abnormality identified 2. Chronic versus recurrent sinus disease Results called to Dr. España at 5:26 PM General information for patients regarding this examination can be found at [facility]. If you have questions or comments about this report, please contact me at (hospital) or [phone] (cell). Imaging: Discussed imaging studies w/ yard caller Radiologist, I viewed and interpreted images myself Laboratory Results: Laboratory Results 10/28/17 16:56 10/28/17 16:56 10/28/17 10/28/17 10/28/17 16:56 16:56 16:56 WBC 9.31 10^3/uL 10^3/uL (3.80-9.50) RBC 5.18 10^6/uL 10^6/uL (4.40-6.38) Hgb 10.4 g/dL L g/dL (13.7-17.5) Hct 35.9 % L % (40.0-51.0) MCV 69.3 fL L fL (81.5-99.8) MCH 20.1 pg L pg (27.9-34.1) MCHC 29.0 g/dL L g/dL (32.4-36.7) RDW 17.7 % H % (11.5-15.2) Plt Count 328 10^3/uL 10^3/uL (150-400) MPV 11.2 fL fL (8.7-11.7) Neut % (Auto) 78.1 % H % (39.3-74.2) Lymph % (Auto) 10.6 % L % (15.0-45.0) Dickens % (Auto) 5.8 % % (4.5-13.0) Eos % (Auto) 4.8 % % (0.6-7.6) Baso % (Auto) 0.4 % % (0.3-1.7) Nucleat RBC Rel Count 0.0 % % (0.0-0.2) Absolute Neuts (auto) 7.26 10^3/uL H 10^3/uL (1.70-6.50) Absolute Lymphs (auto) 0.99 10^3/uL L 10^3/uL (1.00-3.00) Absolute Monos (auto) 0.54 10^3/uL 10^3/uL (0.30-0.80) Absolute Eos (auto) 0.45 10^3/uL H 10^3/uL (0.03-0.40) Absolute Basos (auto) 0.04 10^3/uL 10^3/uL (0.02-0.10) Absolute Nucleated RBC 0.00 10^3/uL 10^3/uL (0-0.01) Immature Gran % 0.3 % % (0.0-1.1) Immature Gran # 0.03 10^3/uL 10^3/uL (0.00-0.10) Platelet Estimate Pending Smear Review By Pending PT 13.5 SEC SEC (12.0-15.0) INR 1.01 (0.83-1.16) APTT 28.5 SEC SEC (23.0-38.0) Sodium 141 mEq/L mEq/L (135-145) Potassium 4.5 mEq/L mEq/L (3.3-5.0) Chloride 102 mEq/L mEq/L (97-110) Carbon Dioxide 23 mEq/l mEq/l (22-31) Anion Gap 16 mEq/L mEq/L (8-16) BUN 27 mg/dL H mg/dL (7-23) Creatinine 1.1 mg/dL mg/dL (0.7-1.3) Estimated GFR > 60 Glucose 108 mg/dL H mg/dL (70-100) Calcium 9.4 mg/dL mg/dL (8.5-10.4) POC Troponin I 10/28/17 16:52 WBC RBC Hgb Hct MCV MCH MCHC RDW Plt Count MPV Neut % (Auto) Lymph % (Auto) Dickens % (Auto) Eos % (Auto) Baso % (Auto) Nucleat RBC Rel Count Absolute Neuts (auto) Absolute Lymphs (auto) Absolute Monos (auto) Absolute Eos (auto) Absolute Basos (auto) Absolute Nucleated RBC Immature Gran % Immature Gran # Platelet Estimate Smear Review By PT INR APTT Sodium Potassium Chloride Carbon Dioxide Anion Gap BUN Creatinine Estimated GFR Glucose Calcium POC Troponin I 0.01 ng/mL ng/mL (0.00-0.08) Point of Care Test Results: Chemistry 10/28/17 16:52 POC Troponin I 0.01 ng/mL ng/mL (0.00-0.08) General Time Seen by Provider: 10/28/17 16:37 Initial Vital Signs: Initial Vital Signs Temperature (C) 36.9 C 10/28/17 16:47 Heart Rate 79 10/28/17 16:47 Respiratory Rate 16 10/28/17 16:47 Blood Pressure 128/77 H 10/28/17 16:47 O2 Sat (%) 94 10/28/17 16:47 O2 Delivery Mode Room Air Allergies/Adverse Reactions: codeine [Codeine] Allergy (Mild, Verified 01/13/14 02:06) finasteride [From Proscar] Allergy (Verified 05/06/17 13:49) Home Medications: Medication Instructions Recorded Acetaminophen [Tylenol] 650 mg PO Q6HRS PRN 07/06/13 Bisacodyl [Dulcolax Rectal (OTC)] 10 mg AR DAILY PRN 07/06/13 Calcium Carbonate [Tums 500MG (*)] 1,000 mg PO Q2 PRN 07/06/13 MAG HYDROX/AL HYDROX/SIMETH 2 tbs PO Q8HRS PRN 07/06/13 [Mylanta Liquid] Magnesium Hydroxide [Milk of 30 ml PO DAILY PRN 07/06/13 Magnesia (*)] Multivitamins [Multivitamin (*)] 1 each PO DAILY 07/06/13 Polyethylene Glycol 3350 [Miralax 17 gm PO DAILY PRN 07/06/13 17 gm (*)] Tamsulosin HCl [Flomax 0.4 MG (*)] 0.4 mg PO HS 07/06/13 Polyvinyl Alcohol [Artificial 1 drop EACHEYE DAILY PRN #0 01/13/14 Tears] Hydrocortisone 1% [Hydrocortisone 1 luz maria TP TID PRN 05/06/17 1% cream (*)] Ipratropium/Albuterol [Duoneb (*)] 3 ml IH Q4HRS PRN 05/06/17 LORazepam [Ativan (*)] 0.5 mg PO Q4HRS PRN 05/06/17 Loperamide HCl [Imodium 2 mg (*)] 2 mg PO Q3HRS PRN 05/06/17 Mineral Oil/Petrolatum,White 1 luz maria TP BID 05/06/17 [Eucerin Cream (*)] Ondansetron HCl [Zofran] 4 mg PO Q8HRS PRN 05/06/17 Venlafaxine Xr [Effexor Xr 75MG 225 mg PO DAILY 05/06/17 (*)] Calcium Carbonate [Tums 500MG (*)] 500 mg PO TID PRN tab.chew 05/14/17 guaiFENesin/DEXTROMETHORPHAN 10 ml PO Q4HRS PRN ml 05/14/17 [Robitussin Dm Oral Liquid (*)] metFORMIN HCL [Glucophage 500 mg 500 mg PO BIDMEAL tab 05/14/17 (*)] Departure - Departure Disposition: Home, Routine, Self-Care Clinical Impression: Laceration of forehead, Abrasion, right lower leg, initial encounter, Fall Condition: Good Instructions: Laceration (ED), Abrasion (ED), Facial Laceration (ED) Additional Instructions: Follow up with your PCP in the next week. Return to the Emergency Department for fever, redness, discharge from wound, increasing pain or other worsening of condition. Referrals: VIRGINIE EDWARDS [Other] - As per Instructions Report Scribed for: Yann España Report Scribed by: Helga Dixon Date of Report: 10/28/17 Time of Report: 17:08 Physician Review and Approval Statement: Portions of this note were transcribed by an ED scribe. I personally performed the history, physical exam, and medical decision making; and confirm the accuracy of the information in the transcribed note.
--- NOTE | 2017-10-28 16:58 | CPEKG ---
Heart Rate: 71 RR Interval: 845 P-R Interval: 184 QRSD Interval: 82 QT Interval: 420 QTC Interval: 457 P Goodyears Bar: 60 QRS Goodyears Bar: -12 T Wave Goodyears Bar: 19 EKG Severity - NORMAL ECG - EKG Impression: SINUS RHYTHM EKG Impression: EARLY R-WAVE PROGRESSION. Electronically Signed By: Winsome Chen 30-Oct-2017 08:25:14
[2017-10-28 17:05] LABS: PLATELET COUNT 328 10^3/uL (150-400)
[2017-10-28 17:35] LABS: INR 1.01 (0.83-1.16); PROTIME(PATIENT) 13.5 SEC (12.0-15.0)
[2017-10-28] MEDS ORDERED: SKIN ADHESIVE (DERMABOND) 1 EACH TP ONE (18:08)
[2017-10-28 18:38] VITALS: BP 132/76
[2017-10-28] MEDS ORDERED: MAG HYDROX/AL HYDROX/SIMETH 30 ML UDCUP ONE (18:53)
[2017-10-28] MEDS ORDERED: MAG HYDROX/AL HYDROX/SIMETH 30 ML UDCUP PO ONE (18:54)
== END 2017-10-28 19:21 | disposition home or self-care (01) ==
LOC: EDUNIT#
PROC: 0HQ1XZZ Repair Face Skin, External Approach (ICD-10-PCS; principal; 2017-10-28)
DX: S01.81XA Laceration without foreign body of other part of head, initial encounter (principal); S80.811A Abrasion, right lower leg, initial encounter; I10 Essential (primary) hypertension; W18.39XA Other fall on same level, initial encounter
CPT/HCPCS: 84484-PO

== ENCOUNTER 2018-05-01 13:53 | Emergency (ER) | payer OTHER, MEDICAID ==
[2018-05-01] MEDS ORDERED: NS 1,000 ML IV ONE (13:58)
--- NOTE | 2018-05-01 14:02 | EDPHY ---
H & P Time Seen by Provider: 05/01/18 13:58 HPI/ROS: CHIEF COMPLAINT: Possible fall HISTORY OF PRESENT ILLNESS: Patient is a 72-year-old man who was found at his shelter on the ground with blood dripping from his mouth. He was seen normal 10 min prior. Nursing staff assumed that he had a fall because he has had several previously. He has an old bruise to his eye and shoulder from previous fall. The patient was also confused. EMS was called. He was placed in a cervical collar brought to the emergency department. He denies neck pain. He denies extremity injuries. He denies headache. He does not remember falling. No seizure history according to shelter the records. He is not on blood thinners. Glucose normal. According to the medical records he has a history of drug and alcohol abuse. The patient tells me that he has been sober for 10 years. Severity: Moderate Modifying factors: None REVIEW OF SYSTEMS: Constitutional: denies: chills, fever, recent illness, recent injury EENTM: See HPI denies: blurred vision, double vision, nose congestion Respiratory: denies: cough, shortness of breath Cardiac: denies: chest pain, irregular heart rate, lightheadedness, palpitations Gastrointestinal/Abdominal: denies: abdominal pain, diarrhea, nausea, vomiting, blood streaked stools Genitourinary: denies: dysuria, frequency, hematuria, pain Musculoskeletal: denies: joint pain, muscle pain Skin: denies: lesions, rash, jaundice, bruising Neurological: See HPI denies: headache, numbness, paresthesia, tingling, dizziness, weakness Hematologic/Lymphatic: denies: blood clots, easy bleeding, easy bruising Immunologic/allergic: denies: HIV/AIDS, transplant 10 systems reviewed and negative except as noted EXAM: GENERAL: Well-appearing, well-nourished and in no acute distress. HEAD: Hold bruise seen to right eye, slight mucousy discharge her right eye, minimal erythema. No vesicular lesions. Atraumatic, normocephalic. EYES: Pupils equal round and reactive to light, extraocular movements intact, sclera anicteric, conjunctiva are normal. ENT: Tongue has maceration bilaterally. No suturable laceration. Small amount of blood in mouth. TMs normal, nares patent. Moist mucous membranes. NECK: Denies pain, no step-off or deformity. Cervical collar cleared by me. Normal range of motion, supple without lymphadenopathy or JVD. LUNGS: Breath sounds clear to auscultation bilaterally and equal. No wheezes rales or rhonchi. HEART: Regular rate and rhythm without murmurs, rubs or gallops. ABDOMEN: Soft, nontender, normoactive bowel sounds. No guarding, no rebound. No masses appreciated. BACK: No CVA tenderness, no spinal tenderness, step-offs or deformities EXTREMITIES: Normal range of motion, no pitting or edema. No clubbing or cyanosis. NEUROLOGICAL: Slightly confused, A& O times person and place. Unclear if this is his baseline, according to EMS it is. Cranial nerves II through XII grossly intact. Normal speech, normal gait. 5/5 strength, normal movement in all extremities, normal sensation, normal reflexes PSYCH: Normal mood, normal affect. SKIN: Mild contusion right shoulder appears old. Warm, dry, normal turgor, no visible rashes or lesions. 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 surgical- appy, tonsilectomy, CABG w/ stent, ortho, toes amputated on R foot - Family History Significant Family History: No pertinent family hx - Social History Smoking Status: Never smoked Alcohol Use: None Drug Use: None Constitutional: Initial Vital Signs Temperature (C) 36.6 C 05/01/18 13:53 Heart Rate 99 05/01/18 13:53 Respiratory Rate 18 05/01/18 13:53 Blood Pressure 161/96 H 05/01/18 13:53 O2 Sat (%) 93 05/01/18 13:53 O2 Delivery Mode Room Air Allergies/Adverse Reactions: codeine [Codeine] Allergy (Mild, Verified 05/01/18 14:00) finasteride [From Proscar] Allergy (Verified 05/01/18 14:00) Home Medications: Medication Instructions Recorded Acetaminophen [Tylenol] 650 mg PO Q6HRS PRN 07/06/13 Bisacodyl [Dulcolax Rectal (OTC)] 10 mg AR DAILY PRN 07/06/13 Calcium Carbonate [Tums 500MG (*)] 1,000 mg PO Q2 PRN 07/06/13 MAG HYDROX/AL HYDROX/SIMETH 2 tbs PO Q8HRS PRN 07/06/13 [Mylanta Liquid] Magnesium Hydroxide [Milk of 30 ml PO DAILY PRN 07/06/13 Magnesia (*)] Multivitamins [Multivitamin (*)] 1 each PO DAILY 07/06/13 Polyethylene Glycol 3350 [Miralax 17 gm PO DAILY PRN 07/06/13 17 gm (*)] Tamsulosin HCl [Flomax 0.4 MG (*)] 0.4 mg PO HS 07/06/13 Polyvinyl Alcohol [Artificial 1 drop EACHEYE DAILY PRN #0 01/13/14 Tears] Hydrocortisone 1% [Hydrocortisone 1 luz maria TP TID PRN 05/06/17 1% cream (*)] Ipratropium/Albuterol [Duoneb (*)] 3 ml IH Q4HRS PRN 05/06/17 LORazepam [Ativan (*)] 0.5 mg PO Q4HRS PRN 05/06/17 Loperamide HCl [Imodium 2 mg (*)] 2 mg PO Q3HRS PRN 05/06/17 Mineral Oil/Petrolatum,White 1 luz maria TP BID 05/06/17 [Eucerin Cream (*)] Ondansetron HCl [Zofran] 4 mg PO Q8HRS PRN 05/06/17 Venlafaxine Xr [Effexor Xr 75MG 225 mg PO DAILY 05/06/17 (*)] Calcium Carbonate [Tums 500MG (*)] 500 mg PO TID PRN tab.chew 05/14/17 guaiFENesin/DEXTROMETHORPHAN 10 ml PO Q4HRS PRN ml 05/14/17 [Robitussin Dm Oral Liquid (*)] metFORMIN HCL [Glucophage 500 mg 500 mg PO BIDMEAL tab 05/14/17 (*)] levETIRAcetam [Keppra 500 mg (*)] 500 mg PO BID #60 tab 05/01/18 Medical Decision Making - Diagnostics Imaging Results: Imaging Impressions Head CT 05/01/18 13:58 Impression: 1. No acute intracranial findings. 2. Diffuse cerebral atrophy with periventricular and subcortical low attenuation consistent with chronic microvascular ischemic gliosis. 3. High attenuation fluid in the right-sided sinus, likely related to blood, with no fractures identified. Findings discussed with Dr. Rome Rapp on 05/01/2018 at 14:55. Imaging: Discussed imaging studies w/ call person Radiologist ED Course/Re-evaluation: Patient has cleared. His mental status is normal. He has no neck pain or complaints of pain or injury. We discussed the CT and lab results. I suspect he may have had a seizure. In our records he has been diagnosed with epilepsy in the past. The patient does not remember this. He is not currently on anti anti epileptic medications. I will start him on Keppra. I do not suspect that he has an encephalopathy or infection. I will refer him to follow up with Neurology. He understands and agrees with this plan. We discussed his tongue laceration. They do not need to be repaired. I also will start him on Ocuflox for his right conjunctivitis. Differential Diagnosis: Partial list of the Differential diagnosis considered include but were not limited to; fall, seizure, tongue laceration, conjunctivitis and although unlikely based on the history and physical exam, I also considered zoster, encephalitis, meningitis. I discussed these differential diagnoses and the plan with the patient as well as the usual and expected course. The patient understands that the diagnosis is provisional and that in medicine we are not always correct and that further workup is often warranted. Usual and customary warnings were given. All of the patient's questions were answered. The patient was instructed to return to the emergency department should the symptoms at all worsen or return, otherwise to followup with the physician as we discussed. - Data Points Laboratory Results: Laboratory Results 05/01/18 13:55 05/01/18 13:55 05/01/18 05/01/18 05/01/18 13:55 13:55 13:55 WBC 9.56 10^3/uL H 10^3/uL (3.80-9.50) RBC 5.65 10^6/uL 10^6/uL (4.40-6.38) Hgb 13.9 g/dL g/dL (13.7-17.5) Hct 44.6 % % (40.0-51.0) MCV 78.9 fL L fL (81.5-99.8) MCH 24.6 pg L pg (27.9-34.1) MCHC 31.2 g/dL L g/dL (32.4-36.7) RDW 24.2 % H % (11.5-15.2) Plt Count 255 10^3/uL 10^3/uL (150-400) MPV 10.4 fL fL (8.7-11.7) Neut % (Auto) 65.9 % % (39.3-74.2) Lymph % (Auto) 15.2 % % (15.0-45.0) Tripp % (Auto) 5.2 % % (4.5-13.0) Eos % (Auto) 13.0 % H % (0.6-7.6) Baso % (Auto) 0.5 % % (0.3-1.7) Nucleat RBC Rel Count 0.0 % % (0.0-0.2) Absolute Neuts (auto) 6.30 10^3/uL 10^3/uL (1.70-6.50) Absolute Lymphs (auto) 1.45 10^3/uL 10^3/uL (1.00-3.00) Absolute Monos (auto) 0.50 10^3/uL 10^3/uL (0.30-0.80) Absolute Eos (auto) 1.24 10^3/uL H 10^3/uL (0.03-0.40) Absolute Basos (auto) 0.05 10^3/uL 10^3/uL (0.02-0.10) Absolute Nucleated RBC 0.00 10^3/uL 10^3/uL (0-0.01) Immature Gran % 0.2 % % (0.0-1.1) Immature Gran # 0.02 10^3/uL 10^3/uL (0.00-0.10) Platelet Estimate ADEQUATE (ADEQ) Hypochromasia 1+ H Elliptocytes 1+ H PT 13.0 SEC SEC (12.0-15.0) INR 0.96 (0.83-1.16) APTT 28.1 SEC SEC (23.0-38.0) Sodium 138 mEq/L mEq/L (135-145) Potassium 4.7 mEq/L mEq/L (3.5-5.2) Chloride 104 mEq/L mEq/L (97-110) Carbon Dioxide 25 mEq/l mEq/l (22-31) Anion Gap 9 mEq/L mEq/L (6-14) BUN 25 mg/dL H mg/dL (7-23) Creatinine 1.0 mg/dL mg/dL (0.7-1.3) Estimated GFR > 60 Glucose 167 mg/dL H mg/dL (70-100) Calcium 9.5 mg/dL mg/dL (8.5-10.4) Ethyl Alcohol < 10 mg/dL mg/dL (0-10) Medications Given: Discontinued Medications Sodium Chloride (Ns) 1,000 mls @ 0 mls/hr IV ONCE ONE; Wide Open PRN Reason: Protocol Stop: 05/01/18 13:59 Last Admin: 05/01/18 14:03 Dose: 1,000 mls Levetiracetam (Keppra) 500 mg PO EDNOW ONE Stop: 05/01/18 15:08 Last Admin: 05/01/18 15:09 Dose: 500 mg Ofloxacin (Ocuflox 0.3% Opht Drops Prepack) 1 btl TAKEHOME EDNOW ONE Stop: 05/01/18 14:59 Last Admin: 05/01/18 15:10 Dose: 1 btl Departure - Departure Disposition: Home, Routine, Self-Care Clinical Impression: Seizure disorder Conjunctivitis Qualifiers: Conjunctivitis type: acute Acute conjunctivitis type: bacterial Laterality: right Qualified Code(s): H10.31 - Unspecified acute conjunctivitis, right eye Condition: Fair Instructions: Ofloxacin (Into the eye), Epilepsy (ED), Conjunctivitis (ED) Additional Instructions: Use the Ocuflox 2 drops every 4 hr for 4 days until your symptoms resolved. Referrals: Patient,NotPresent [Unknown] - As per Instructions Efe Ruffin DO [Medical Doctor] - 5-7 days, call for appt. Prescriptions: levETIRAcetam [Keppra 500 mg (*)] 500 mg PO BID #60 tab
[2018-05-01 14:08] VITALS: BP 161/96
[2018-05-01 14:22] LABS: PLATELET COUNT 255 10^3/uL (150-400)
[2018-05-01 14:33] LABS: INR 0.96 (0.83-1.16)
[2018-05-01] MEDS ORDERED: OFLOXACIN 0.3% SOLN PREPACK OPHT.BTL TAKEHOME ONE (14:58)
[2018-05-01] MEDS ORDERED: levETIRAcetam 500 MG TAB PO ONE (15:07)
--- NOTE | 2018-05-01 17:35 | ASDISCHSUM ---
Discharge Information Plan Status:SNF Medically Cleared to Leave: Discharge Date:05/01/2018 05:01 PM D/C Disposition:Alf Facility ADT D/C Disposition:Home, Routine, Self-Care Projected Discharge Date:05/01/2018 05:01 PM Transportation at D/C:Wheelchair Van Discharge Delay Reason: Follow-Up Date:05/01/2018 05:01 PM Discharge Slot: Final Diagnosis: Placement Information Patient Contact Information Contact Name:MIGUEL ÁNGEL Relationship:Daughter Address: Work Phone: City:[place] Alternate Phone: State/Zip Code:[place] Email: Financial Information Financial Class:Medicare Advantage Plans Primary Plan Desc:[facility] [employer] Primary Plan Number:[id number] Secondary Plan Desc:[employer] Secondary Plan Number:[id number] Assessment Information Intervention Information Intervention Type:Transportation Date of Service:05/01/2018 05:32 PM Patient Type:Emergency Room Staff Member:WILLIAN Piña Sharon Hours:0.25 Discipline:Sorter Operator Severity: Comment:[facility] transport arranged (a nd billed to [facility]) for pt to return to . Intervention Type:Post Acute Communication Date of Service:05/01/2018 05:32 PM Patient Type:Emergency Room Staff Member:WILLIAN Piña Sharon Hours:0.25 Discipline:Sorter Operator Severity: Comment:Spoke w/Tali at , confirmed they h ad notified family
== END 2018-05-01 17:01 | disposition home or self-care (01) ==
LOC: EDUNIT#
DX: G40.909 Epilepsy, unspecified, not intractable, without status epilepticus (principal); H10.31 Unspecified acute conjunctivitis, right eye; E86.9 Volume depletion, unspecified
CPT/HCPCS: G0390; G0480

== ENCOUNTER → 2018-08-12 | Outpatient (CLI) | payer OTHER, MEDICAID ==
--- NOTE | 2018-08-12 15:31 | CPEEG ---
[f rep st] ELECTROENCEPHALOGRAM A 4-HOUR VIDEO EEG. DATE OF STUDY: 08/12/2018 DATE OF INTERPRETATION: 08/12/2018. INTERPRETATION: This 4-hour video EEG recording is essentially normal. There were no definite poten tially epileptogenic abnormalities present during the awake or sleep recordings. The patient did not have any clinical events during the EEG monitoring session. REPORT: This 4-hour video EEG monitoring session contains 10 Hz alpha activity of the posterior head regions. There was no abnormal activation at rest, during photic stimulation or hyperventilation. The patient intermittently became drowsy and fell into sustained sleep during the study. During drow siness, there was intermittent bitemporal theta frequency activity. This is a normal variant. There was no abnormal epileptiform activation with drowsiness, sleep, or during times of arousal. /[id number]/MODL
== END ==
LOC: FCPNEURO 08:18
PROVIDERS: ATTEND Psychiatry & Neurology Neurology
DX: R56.9 Unspecified convulsions (principal)

== ENCOUNTER 2018-09-30 17:56 | Emergency (ER) | payer OTHER, MEDICAID ==
[2018-09-30] MEDS ORDERED: NS 1,000 ML IV ONE (18:04)
[2018-09-30] MEDS ORDERED: LORazepam 2 MG/ML INJ IVP ONE (18:04)
--- NOTE | 2018-09-30 18:07 | EDPHY ---
H & P Stated Complaint: seizure vs syncopal Time Seen by Provider: 09/30/18 17:57 HPI/ROS: CHIEF COMPLAINT: Decreased mental status HISTORY OF PRESENT ILLNESS: Patient is a 73-year-old man who was at an alcoholics anonymous meeting and found to be slumped over in his wheelchair drooling. Bystanders had a hard time waking him up in called paramedics. Paramedics state that he seemed postictal at first but has gradually improved throughout transport. His stroke scale was negative. He is now answering questions appropriately. The patient denies any recent alcohol use. He denies history of seizures although according to his chart it says he has a history of traumatic seizures. He denies recent fevers or illness. He denies any pain currently. He denies any weakness or stroke-like symptoms. He does have some mild abrasions to the lateral aspect of his tongue. He does have a history of alcohol abuse but states that he has not drank in a long time. He has no complaints. Severity: Moderate Modifying factors: Improving spontaneously REVIEW OF SYSTEMS: Constitutional: denies: chills, fever, recent illness, recent injury EENTM: denies: blurred vision, double vision, nose congestion Respiratory: denies: cough, shortness of breath Cardiac: denies: chest pain, irregular heart rate, lightheadedness, palpitations Gastrointestinal/Abdominal: denies: abdominal pain, diarrhea, nausea, vomiting, blood streaked stools Genitourinary: denies: dysuria, frequency, hematuria, pain Musculoskeletal: denies: joint pain, muscle pain Skin: denies: lesions, rash, jaundice, bruising Neurological: See HPI denies: headache, numbness, paresthesia, tingling, dizziness, weakness Hematologic/Lymphatic: denies: blood clots, easy bleeding, easy bruising Immunologic/allergic: denies: HIV/AIDS, transplant 10 systems reviewed and negative except as noted EXAM: GENERAL: Well-appearing, well-nourished and in no acute distress. HEAD: Atraumatic, normocephalic. EYES: Pupils equal round and reactive to light, extraocular movements intact, sclera anicteric, conjunctiva are normal. ENT: Mild abrasions to lateral tongue bilaterally TMs normal, nares patent, oropharynx clear without exudates. Moist mucous membranes. NECK: Normal range of motion, supple without lymphadenopathy or JVD. LUNGS: Breath sounds clear to auscultation bilaterally and equal. No wheezes rales or rhonchi. HEART: Regular rate and rhythm without murmurs, rubs or gallops. ABDOMEN: Soft, nontender, normoactive bowel sounds. No guarding, no rebound. No masses appreciated. BACK: No CVA tenderness, no spinal tenderness, step-offs or deformities EXTREMITIES: Normal range of motion, no pitting or edema. No clubbing or cyanosis. NEUROLOGICAL: Cranial nerves II through XII grossly intact. Normal speech, normal gait. 5/5 strength, normal movement in all extremities, normal sensation , normal reflexes PSYCH: Normal mood, normal affect. SKIN: Warm, dry, normal turgor, no visible rashes or lesions. 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 surgical- appy, tonsilectomy, CABG w/ stent, ortho, toes amputated on R foot - Family History Significant Family History: No pertinent family hx - Social History Smoking Status: Never smoked Alcohol Use: Sober Drug Use: None Constitutional: Initial Vital Signs Temperature (C) 36.8 C 09/30/18 18:00 Heart Rate 88 09/30/18 18:00 Respiratory Rate 16 09/30/18 18:00 Blood Pressure 144/102 H 09/30/18 18:00 O2 Sat (%) 94 09/30/18 18:00 O2 Delivery Mode Room Air Allergies/Adverse Reactions: codeine [Codeine] Allergy (Mild, Verified 09/30/18 18:00) finasteride [From Proscar] Allergy (Verified 09/30/18 18:00) Home Medications: Medication Instructions Recorded Acetaminophen [Tylenol] 650 mg PO Q6HRS PRN 07/06/13 Bisacodyl [Dulcolax Rectal (OTC)] 10 mg WA DAILY PRN 07/06/13 Calcium Carbonate [Tums 500MG (*)] 1,000 mg PO Q2 PRN 07/06/13 MAG HYDROX/AL HYDROX/SIMETH 2 tbs PO Q8HRS PRN 07/06/13 [Mylanta Liquid] Magnesium Hydroxide [Milk of 30 ml PO DAILY PRN 07/06/13 Magnesia (*)] Multivitamins [Multivitamin (*)] 1 each PO DAILY 07/06/13 Polyethylene Glycol 3350 [Miralax 17 gm PO DAILY PRN 07/06/13 17 gm (*)] Tamsulosin HCl [Flomax 0.4 MG (*)] 0.4 mg PO HS 07/06/13 Polyvinyl Alcohol [Artificial 1 drop EACHEYE DAILY PRN #0 01/13/14 Tears] Hydrocortisone 1% [Hydrocortisone 1 luz maria TP TID PRN 05/06/17 1% cream (*)] Ipratropium/Albuterol [Duoneb (*)] 3 ml IH Q4HRS PRN 05/06/17 LORazepam [Ativan (*)] 0.5 mg PO Q4HRS PRN 05/06/17 Loperamide HCl [Imodium 2 mg (*)] 2 mg PO Q3HRS PRN 05/06/17 Mineral Oil/Petrolatum,White 1 luz maria TP BID 05/06/17 [Eucerin Cream (*)] Ondansetron HCl [Zofran] 4 mg PO Q8HRS PRN 05/06/17 Venlafaxine Xr [Effexor Xr 75MG 225 mg PO DAILY 05/06/17 (*)] Calcium Carbonate [Tums 500MG (*)] 500 mg PO TID PRN tab.chew 05/14/17 guaiFENesin/DEXTROMETHORPHAN 10 ml PO Q4HRS PRN ml 05/14/17 [Robitussin Dm Oral Liquid (*)] metFORMIN HCL [Glucophage 500 mg 500 mg PO BIDMEAL tab 05/14/17 (*)] levETIRAcetam [Keppra 500 mg (*)] 500 mg PO BID #60 tab 05/01/18 Medical Decision Making - Diagnostics EKG Interpretation: An EKG obtained and was read and documented in trace view. Please see trace view for full reading and report. Sinus rhythm, no acute ischemic changes ED Course/Re-evaluation: 7:15 p.m. the patient is currently asymptomatic. He is eager to go home. He has no complaints. He tells me that he thinks he has had seizures before but does not know for sure. He is not on any antiepileptics. We discussed possibly starting some. He will discussed this with his primary care doctor. His friend is here to take him home. Discussed indications for returning. He is wheelchair-bound due to a back injury received during surgery a year ago. Differential Diagnosis: Partial list of the Differential diagnosis considered include but were not limited to; seizure, intoxication, withdrawal, fatigue and although unlikely based on the history and physical exam, I also considered infection, CVA, neck injury. I discussed these differential diagnoses and the plan with the patient as well as the usual and expected course. The patient understands that the diagnosis is provisional and that in medicine we are not always correct and that further workup is often warranted. Usual and customary warnings were given. All of the patient's questions were answered. The patient was instructed to return to the emergency department should the symptoms at all worsen or return, otherwise to followup with the physician as we discussed. - Data Points Laboratory Results: Laboratory Results 09/30/18 18:10 09/30/18 18:09 Medications Given: Discontinued Medications Sodium Chloride (Ns) 1,000 mls @ 0 mls/hr IV ONCE ONE; Wide Open PRN Reason: Protocol Stop: 09/30/18 18:05 Last Admin: 09/30/18 18:13 Dose: 1,000 mls Lorazepam (Ativan Injection) 0.5 mg IVP EDNOW ONE Stop: 09/30/18 18:05 Last Admin: 09/30/18 18:13 Dose: 0.5 mg Departure - Departure Disposition: Home, Routine, Self-Care Clinical Impression: Seizure Condition: Fair Instructions: Recurrent Seizures in Adults (ED) Referrals: Patient,NotPresent [Unknown] - As per Instructions Efe Ruffin DO [Medical Doctor] - 5-7 days, call for appt.
[2018-09-30 18:22] LABS: PLATELET COUNT 204 10^3/uL (150-400)
--- NOTE | 2018-09-30 18:32 | CPEKG ---
Test Reason : OPEN Blood Pressure : / mmHG Vent. Rate : 081 BPM Atrial Rate : 082 BPM P-R Int : 186 ms QRS Dur : 087 ms QT Int : 402 ms P-R-T Axes : 046 -25 018 degrees QTc Int : 467 ms Sinus rhythm Confirmed by Marianela Meadows ([id number]) on 09/30/2018 6:32:25 PM Referred By: MARIANELA MEADOWS Confirmed By:Marianela Meadows
[2018-09-30 19:37] VITALS: BP 150/91
== END 2018-09-30 19:36 | disposition home or self-care (01) ==
LOC: EDUNIT#
DX: R56.1 Post traumatic seizures (principal); S00.512A Abrasion of oral cavity, initial encounter; E11.42 Type 2 diabetes mellitus with diabetic polyneuropathy; I10 Essential (primary) hypertension; J44.9 Chronic obstructive pulmonary disease, unspecified; N40.0 Benign prostatic hyperplasia without lower urinary tract symptoms; F32.9 Major depressive disorder, single episode, unspecified; F41.9 Anxiety disorder, unspecified; Z79.84 Long term (current) use of oral hypoglycemic drugs; Z79.899 Other long term (current) drug therapy; Z86.73 Personal history of transient ischemic attack (TIA), and cerebral infarction without residual deficits; Z99.3 Dependence on wheelchair
CPT/HCPCS: 93005; 96361; 96374; 99284; J2060; G0480

== ENCOUNTER 2018-10-30 18:52 | Observation (INO) | payer OTHER, MEDICAID | END 2018-10-31 14:27 | disposition home or self-care (01) | LOC: F3N 21:15 ==